=== PATIENT | female | born 1950 | race Caucasian/White ===

== ENCOUNTER 2017-04-11 10:20 | Inpatient (IN) ==
[2017-04-11] MEDS ORDERED: Ondansetron 4 MG/2 ML VIAL IVP ONE (10:59)
[2017-04-11] MEDS ORDERED: GI Cocktail 40 ML EACH PO ONE (10:59)
[2017-04-11] MEDS ORDERED: 0.9 % Sodium Chloride 1,000 ML IVC ONE (10:59)
[2017-04-11 11:00] LABS: Bilirubin,Urine Small (Negative); Blood,Urine Small (Negative); Clarity,Urine Cloudy (Clear); Color,Urine Dark Yellow (Yellow); Glucose,Urine (UA) Normal (Normal); Ketones,Urine Negative (Negative); Leukocyte Esterase,Urine Trace (Negative); Nitrite,Urine Negative (Negative); PH,Urine 6.5 pH Units (5.0-8.0); Protein,Urine 30 mg/dL (Neg-Trace); Specific Gravity,Urine 1.019 (1.010-1.025); Urobilinogen,Urine Normal (Normal)
--- NOTE | 2017-04-11 11:14 | Emergency Department Note ---
Disposition Clinical Impression: Renal mass, left Abdominal pain Qualifiers: Abdominal location: left upper quadrant Qualified Code(s): R10.12 - Left upper quadrant pain Nausea & vomiting Qualifiers: Vomiting type: unspecified Vomiting Intractability: unspecified Qualified Code( s): R11.2 - Nausea with vomiting, unspecified Disposition: Admitted As Inpatient Condition: Fair Abdominal Pain HPI - General Chief Complaint: ED Abdominal Pain Stated Complaint: ABD Pain,N/V Time Seen by Provider: 04/11/17 10:52 Source: patient Mode of arrival: ambulatory Limitations: no limitations Nursing Notes Reviewed: Yes Vital Signs Reviewed: Yes - History of Present Illness HPI Narrative: Patient presents to the ED with the chief complaint of abdominal pain. Patient reports that since September 2016. She has had a very vague insidious onset of epigastric and left sided abdominal pain. She states that around that time she went to her primary care physician and found out that she was anemic and also had hyperthyroidism. She was started on iron pills but nothing for her thyroid. She states that she has intermittently felt better but within the last week and started feeling poorly again. She also states that she has had a 50 pound unintentional weight loss since September. Decreased appetite. Constipation. Fairly consistent nausea and intermittent vomiting of nonbloody, nonbilious. No diarrhea, melena, hematochezia. Denies any chest discomfort or shortness of breath. Denies any headache, fever, changes in vision. She states she just feels really run down and tired Pain Scale: 8 - Related Data Home Medications Medication Instructions Recorded Confirmed Diclofenac Sodium (24 HR) 100 mg PO DAILY 04/11/17 04/11/17 [Voltaren XR] Iron Polysaccharide Complex [Pro 180 mg PO DAILY 04/11/17 04/11/17 Fe] Rosuvastatin [Crestor] 20 mg PO HS 04/11/17 04/11/17 Allergies Allergy/AdvReac Type Severity Reaction Status Date / Time codeine Allergy Muscle Pain Verified 04/11/17 10:43 All systems ED: reviewed and negative except as stated. Constitutional: Reports: weakness. Denies: fever Eyes: Denies: vision change Cardiovascular: Denies: chest pain Gastrointestinal: Reports: abdominal pain, nausea, vomiting, constipation Musculoskeletal: Denies: back pain Neurological: Denies: headache Endocrine: Reports: fatigue Abdominal Pain PMH - Past Medical History Medical history: Reports: hyperlipidemia, thyroid disease Female Surgical History: Reports: cholecystectomy, hysterectomy [place] history: Reports: bilateral tubal ligation Psychiatric history: Reports: depression - Social History Smoking status: Current every day smoker Alcohol use: Reports: none Drug use: Reports: none Physical Exam - General Limitations: no limitations General appearance: alert, in no apparent distress - Head Head exam: atraumatic, normocephalic, normal inspection - Eye Eye exam: Present: normal appearance, PERRL, EOMI - ENT ENT exam: mucous membranes dry - Neck Neck exam: Present: normal inspection, full ROM, trachea midline - Chest Chest inspection: Present: normal inspection, symmetric chest wall rise - Respiratory Respiratory exam: Present: normal lung sounds bilaterally - Cardiovascular Cardiovascular exam: Present: normal rhythm, tachycardia, normal heart sounds. Absent: regular rate, irregular rhythm - Abdominal Exam Abdominal exam: Present: soft, tenderness, diminished bowel sounds. Absent: guarding, rebound, Blancas's sign, tenderness at McBurney's Point Abdominal tenderness: Present: LUQ, epigastrium, diffuse, mild - Extremities Exam Extremities exam: Present: normal inspection, full ROM. Absent: tenderness, pedal edema - Back Exam Back exam: Present: normal inspection, full ROM. Absent: tenderness - Neurological Exam Neurological exam: Present: alert, oriented X3 - Psychiatric Psychiatric exam: Present: normal affect, normal mood - Skin Skin exam: Present: warm, dry, intact, pallor. Absent: normal color Course Course Narrative: Patient presenting with abdominal pain, clinically appears ill but nontoxic. Concern over malignancy. Labs and CT with IV contrast - Reevaluation(s) Reevaluation #1: Patient's abdominal CT is concerning for a large left-sided renal tumor. I spoke with urology who recommended admission in the hospital with oncology consult and they will determine when a nephrectomy with the possible. Patient agreeable with plan Vital Signs Temperature 99 F 04/11/17 10:43 Pulse Rate 108 04/11/17 10:43 Respiratory Rate 16 04/11/17 10:43 Blood Pressure 108/63 04/11/17 10:43 O2 Sat by Pulse Oximetry 98 04/11/17 10:43 Temperature 98.3 F 04/11/17 15:44 Pulse Rate 80 04/11/17 15:44 Respiratory Rate 14 04/11/17 15:44 Blood Pressure 93/54 04/11/17 15:44 O2 Sat by Pulse Oximetry 93 04/11/17 15:44 Oxygen Delivery Oxygen Delivery Room Air Abdominal Pain - Medical Records Medical records reviewed: Yes I reviewed the patient's medical records. - Lab Data Lab results reviewed: Yes I reviewed the patient's lab results. Result diagrams: 04/11/17 17:25 04/11/17 11:26 Lab Results 04/11/17 04/11/17 04/11/17 Range/Units 10:30 11:26 11:26 WBC 13.0 H (4.3-11.1) K/mcL RBC 4.11 (3.82-4.97) M/mcL Hgb 8.5 L (11.5-15.4) g/dL Hct 29.2 L (35.3-44.9) % MCV 71.0 L (83.0-100.0) fL MCH 20.7 L (28.0-33.3) pg MCHC 29.1 L (31.6-35.5) g/dL RDW 17.9 H (11.5-14.5) % Plt Count 756 H (140-400) K/mcL MPV 9.2 L (9.4-12.4) fL Immature Gran % 0.6 (0-4) % Seg Neutrophils % 78.1 % Lymphocytes % 11.2 % Monocytes % 9.2 % Eosinophils % 0.5 % Basophils % 0.4 % Neutrophils # 10.2 H (1.6-8.9) K/mcL Lymphocytes # 1.5 (0.6-4.6) K/mcL Monocytes # 1.2 (0.0-1.3) K/mcL Eosinophils # 0.1 (0.0-0.6) K/mcL Basophils # 0.1 (0.0-0.2) K/mcL Immature Plt Fraction 1.7 (1.1-6.1) % Sodium (136-145) mEq/L Potassium (3.5-4.5) mEq/L Chloride (98-109) mEq/L Carbon Dioxide (19-29) mEq/L BUN (7-20) mg/dL Creatinine (0.57-1.11) mg/dL Est GFR ( Amer) (> 60) Est GFR (Non-Af Amer) (> 60) BUN/Creatinine Ratio (6-26) Glucose (70-99) mg/dL Calculated Osmolality (280-300) Lactic Acid 1.1 (0.5-2.2) mmol/L Calcium (8.6-10.8) mg/dL Total Bilirubin (0.2-1.2) mg/dL Direct Bilirubin (0.0-0.5) mg/dL Indirect Bilirubin (0.0-1.2) mg/dL AST (5-34) Units/L ALT (0-55) Units/L Alkaline Phosphatase (38-126) Units/L Troponin I (0-0.03) ng/mL Serum Total Protein (6.0-8.3) g/dL Albumin (3.5-5.0) g/dL Globulin (2.4-3.5) g/dL Albumin/Globulin Ratio (1.1-2.2) Lipase (8-78) Units/L TSH (0.350-4.840) mcIU/mL Free T4 (0.70-1.48) ng/dl Free T3 (1.71-3.71) pg/mL Urine Color Dark Yellow (Yellow) Urine Clarity Cloudy A (Clear) Urine pH 6.5 (5.0-8.0) pH Units Ur Specific Boomer 1.019 (1.010-1.025) Urine Protein 30 H (Neg-Trace) mg/dL Urine Glucose (UA) Normal (Normal) mg/dL Urine Ketones Negative (Negative) mg/dL Urine Blood Small H (Negative) Urine Nitrite Negative (Negative) Urine Bilirubin Small H (Negative) Urine Urobilinogen Normal (Normal) mg/dL Ur Leukocyte Esterase Trace H (Negative) Urine Microscopic RBC 3-5 H (0-3) per hpf Urine Microscopic WBC 0-3 (0-3) per hpf Ur Squamous Epith Cells Many H (None-Few) per lpf Amorphous Sediment Few (Few) Urine Bacteria Few (None-Few) per hpf Ur Culture Indicated? YES A (NO) 04/11/17 04/11/17 Range/Units 11:26 11:26 WBC (4.3-11.1) K/mcL RBC (3.82-4.97) M/mcL Hgb (11.5-15.4) g/dL Hct (35.3-44.9) % MCV (83.0-100.0) fL MCH (28.0-33.3) pg MCHC (31.6-35.5) g/dL RDW (11.5-14.5) % Plt Count (140-400) K/mcL MPV (9.4-12.4) fL Immature Gran % (0-4) % Seg Neutrophils % % Lymphocytes % % Monocytes % % Eosinophils % % Basophils % % Neutrophils # (1.6-8.9) K/mcL Lymphocytes # (0.6-4.6) K/mcL Monocytes # (0.0-1.3) K/mcL Eosinophils # (0.0-0.6) K/mcL Basophils # (0.0-0.2) K/mcL Immature Plt Fraction (1.1-6.1) % Sodium 137 (136-145) mEq/L Potassium 4.3 (3.5-4.5) mEq/L Chloride 102 (98-109) mEq/L Carbon Dioxide 24 (19-29) mEq/L BUN 14 (7-20) mg/dL Creatinine 0.79 (0.57-1.11) mg/dL Est GFR ( Amer) > 60 (> 60) Est GFR (Non-Af Amer) > 60 (> 60) BUN/Creatinine Ratio 18 (6-26) Glucose 119 H (70-99) mg/dL Calculated Osmolality 286 (280-300) Lactic Acid (0.5-2.2) mmol/L Calcium 10.6 (8.6-10.8) mg/dL Total Bilirubin 0.4 (0.2-1.2) mg/dL Direct Bilirubin 0.3 (0.0-0.5) mg/dL Indirect Bilirubin 0.1 (0.0-1.2) mg/dL AST 23 (5-34) Units/L ALT 9 (0-55) Units/L Alkaline Phosphatase 325 H (38-126) Units/L Troponin I 0.00 (0-0.03) ng/mL Serum Total Protein 8.2 (6.0-8.3) g/dL Albumin 1.9 L (3.5-5.0) g/dL Globulin 6.3 H (2.4-3.5) g/dL Albumin/Globulin Ratio 0.3 L (1.1-2.2) Lipase 18 (8-78) Units/L TSH 0.811 (0.350-4.840) mcIU/mL Free T4 1.17 (0.70-1.48) ng/dl Free T3 1.73 (1.71-3.71) pg/mL Urine Color (Yellow) Urine Clarity (Clear) Urine pH (5.0-8.0) pH Units Ur Specific Boomer (1.010-1.025) Urine Protein (Neg-Trace) mg/dL Urine Glucose (UA) (Normal) mg/dL Urine Ketones (Negative) mg/dL Urine Blood (Negative) Urine Nitrite (Negative) Urine Bilirubin (Negative) Urine Urobilinogen (Normal) mg/dL Ur Leukocyte Esterase (Negative) Urine Microscopic RBC (0-3) per hpf Urine Microscopic WBC (0-3) per hpf Ur Squamous Epith Cells (None-Few) per lpf Amorphous Sediment (Few) Urine Bacteria (None-Few) per hpf Ur Culture Indicated? (NO) - Radiology Data Radiology results reviewed: Yes I reviewed the patient's radiology results. - EKG Data EKG attestation: Yes I reviewed and interpreted this EKG. EKG results narrative: Sinus rhythm, rate 94, [place] interval 154, QRS 1:15, QTC 378, left axis deviation, left anterior fascicular block and no previous available, no acute ischemic changes
--- NOTE | 2017-04-11 11:19 | Emergency Department Note ---
START Narrative - START START: I examined this patient and my medical decision-making was reviewed with the RAIL WALKER/PA/Advanced Practice Nurse/Resident Physician. I agree with the documented findings, disposition and treatment plan as described except to the extent set forth below. ED attending note: Patient seen with emergency medicine resident Dr. FLORES. We independently evaluated the patient. We independently had [id number] contact with the patient. Please see a copy of his note for details of the history and physical, evaluation, management and disposition of this emergency Department patient. Briefly: 67-year-old female unexplained 50 pound weight loss over the past several months without any personal or family history of neoplasms. Patient appears ill but nontoxic will get rehydrated with screening labs will search for the cause of weight loss most conspicuously an occult neoplasm. Skin abdominopelvic CT and labs. Disposition pending.
[2017-04-11 11:23] LABS: Bacteria,Urine Few per hpf (None-Few); Squamous Epithelial Cell,Urine Many per lpf (None-Few); WBC,Urine 0-3 per hpf (0-3)
[2017-04-11 11:24] LABS: Amorphous Sediment,Urine Few (Few)
[2017-04-11 11:35] LABS: Basophils # 0.1 K/mcL (0.0-0.2); Basophils % 0.4 %; Eosinophils # 0.1 K/mcL (0.0-0.6); Eosinophils % 0.5 %; Hematocrit 29.2 % (35.3-44.9); Hemoglobin 8.5 g/dL (11.5-15.4); Immature Granulocytes % 0.6 % (0-4); Immature Platelets 1.7 % (1.1-6.1); Lymphocytes # 1.5 K/mcL (0.6-4.6); Lymphocytes % 11.2 %; Mean Corpuscular HGB Conc 29.1 g/dL (31.6-35.5); Mean Corpuscular Hemoglobin 20.7 pg (28.0-33.3); Mean Platelet Volume 9.2 fL (9.4-12.4); Monocytes # 1.2 K/mcL (0.0-1.3); Monocytes % 9.2 %; Neutrophils # 10.2 K/mcL (1.6-8.9); Platelet Count 756 K/mcL (140-400); Red Blood Count 4.11 M/mcL (3.82-4.97); Red Cell Distribution Width 17.9 % (11.5-14.5); Segmented Neutrophils % 78.1 %
[2017-04-11 11:49] LABS: Alanine Aminotransferase 9 Units/L (0-55); Albumin/Globulin Ratio 0.3 (1.1-2.2); Alkaline Phosphatase 325 Units/L (38-126); Aspartate Amino Transferase 23 Units/L (5-34); BUN/Creatinine Ratio 18 (6-26); Bilirubin,Direct 0.3 mg/dL (0.0-0.5); Bilirubin,Indirect 0.1 mg/dL (0.0-1.2); Bilirubin,Total 0.4 mg/dL (0.2-1.2); Blood Urea Nitrogen 14 mg/dL (7-20); Calcium 10.6 mg/dL (8.6-10.8); Carbon Dioxide 24 mEq/L (19-29); Chloride 102 mEq/L (98-109); Globulin 6.3 g/dL (2.4-3.5); Glucose 119 mg/dL (70-99); Lipase 18 Units/L (8-78); Osmolality,Calculated 286 (280-300); Potassium 4.3 mEq/L (3.5-4.5); Sodium 137 mEq/L (136-145); Total Protein 8.2 g/dL (6.0-8.3); eGFR For African Americans > 60 (> 60); eGFR For Non-African Americans > 60 (> 60)
[2017-04-11 11:50] LABS: Albumin 1.9 g/dL (3.5-5.0)
[2017-04-11 12:10] LABS: Thyroid Stimulating Hormone 0.811 mcIU/mL (0.350-4.840); Triiodothyronine (T3) Free 1.73 pg/mL (1.71-3.71)
[2017-04-11] MEDS ORDERED: Naloxone 0.4 MG/ML INJ IVP PRN (15:53)
[2017-04-11] MEDS ORDERED: Ondansetron 4 MG/2 ML VIAL IVP PRN (15:53)
[2017-04-11] MEDS ORDERED: *HR* Morphine 2 MG/ML SYRINGE IVP PRN (16:46)
--- NOTE | 2017-04-11 17:12 | Internal Med History&Physical ---
Date of Encounter: 04/11/17 Time of Encounter: 17:07 Assessment and Plan (1) Renal cell cancer Current visit: Yes Status: Suspected Suspected diagnosis of renal cell cancer. Patient presents with an insidious onset of epigastric, and left abdominal pain radiation to the left mid back accompanied by a 54 pounds unintentional weight loss and nausea and vomiting since September 2016. CT abdomen and pelvis revealed a necrotic mass arising from upper pole of left kidney measuring approximately 13.2 x 10 x 12.8 cm, mass extends into renal hilum with no evidence of vascular thrombosis, there may be clinic invasion as well as lymph node involvement. Neurology has been consulted and has already seen patient Oncology has been consulted and plan to see patient today will adjust treatment plan based off urology and oncology consults Continuous telemetry Rehydration with 0.9% normal saline at 125 mL per hour Every 4 hours H and H 2 then every 6 hours H&H 3 Type and screen Strict I's and O's Morphine 2 mg IV push every 4 hours for pain Metabolic panel in the morning Consider CT of chest based upon recommendations of oncology Qualifiers: Laterality: left Qualified Code(s): C64.2 - Malignant neoplasm of left kidney, except renal pelvis (2) Nausea & vomiting Current visit: Yes Status: Acute Nausea and vomiting ongoing since early 2016. Associated with epigastric and left abdominal pain, CT reveals new diagnosis of renal cancer. Management nausea and vomiting with Zofran, consider adding Phenergan and remains uncontrolled on Zofran Qualifiers: Vomiting type: unspecified Vomiting Intractability: unspecified Qualified Code(s): R11.2 - Nausea with vomiting, unspecified (3) Abdominal pain Current visit: Yes Status: Acute Epigastric and left upper quadrant abdominal pain with radiation to left mid back. This pain is accompanied with 54 pound weight loss in September 2016. Diagnosis of renal cell cancer CT. Morphine 2 mg IV push every 4 hours when necessary for pain Qualifiers: Abdominal location: left upper quadrant Qualified Code(s): R10.12 - Left upper quadrant pain (4) Weight loss of more than 10% body weight Current visit: Yes Status: Acute The patient has had a greater than 10% unintentional weight loss beginning September 2016. Associated with insidious onset of epigastric, left abdominal pain, nausea vomiting. CT abdomen and pelvis reveals new necrotic mass on left kidney likely renal cell cancer. Renal cell cancer is likely the cause of unintentional weight loss. 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 Patient with new diagnosis of renal cell cancer which is likely resulting in anemia. Continue home dose of iron supplementation Every 4 H&H 2 then every 63 Type and screen in case of the need for transfusion Obtain permission to transfuse Qualifiers: Anemia type: iron deficiency Iron deficiency anemia type: chronic blood loss Qualified Code(s): D50.0 - Iron deficiency anemia secondary to blood loss (chronic) (6) Constipation Current visit: Yes Status: Acute Patient reports constipation ongoing over the last couple of days. She was recently started on supplemental iron by primary care provider due to anemia and this is likely contributory. Docusate 100 mg twice a day Qualifiers: Qualified Code(s): K59.00 - Constipation, unspecified (7) DVT prophylaxis Current visit: Yes Status: Acute Likely diagnosis of renal cell cancer. Patient is a high-risk for DVT. Start Lovenox 40 mg subcutaneous daily Internal Medicine - H&P: HPI Chief complaint: epigastric pain, pain in lt abd with radiation to left back, N/ V Admitted From: Home Plans for Post Hospital Care: Home History of present illness: Ms. Pruitt is a 67 year old female with a past medical history of HLD, hyperthyroidism, depression, partial hysterectomy and cholecystectomy and is a current everyday smoker. Presents [facility] today with an insidious onset of epigastric and left abdominal pain with radiation to the left midback. Additionally, reports 54 pound weight loss since September with intermittent nausea and vomiting, fatigue, dizziness, intermittent fevers, anorexia, early satiety. She admits to seeing multiple primary care providers with these concerns however, they have left her practice shortly after she established. Most recent PCP for workup which showed hyperthyroidism, 2 thyroid nodules biopsied and negative for cancer. Workup reveals anemia H&H as follows 8.5/29.2, increase WBCs 13, unremarkable metabolic panel, dark urine with trace leuks, CT abdomen and pelvis reveals new necrotic mass arising from upper left pole of kidney with approximate size of 13 cm x 10 cm x 13 cm, mass extends into renal hilum with no evidence of vascular thrombosis. It appears the patient may have renal cell cancer. Being admitted for further monitoring, workup and consultation. Past Med Surg Social Fam HX - Past Medical History Medical history: hyperlipidemia, thyroid disease Psychiatric history: depression - Social History Smoking Status: Current every day smoker Packs per day: 1 Smokeless Tobacco Status: No Alcohol use: none Drug use: none - Family History Mother Living Status: Still Living Hx Family Cardiac Disorders: Yes Father Living Status: Hx Family Endocrine Disorder: Yes (type 2 DM) Internal Medicine - H&P: Meds Diclofenac Sodium (24 HR) [Voltaren XR] 100 mg PO DAILY 04/11/17 [History] Iron Polysaccharide Complex [Pro Fe] 180 mg PO DAILY 04/11/17 [History] Rosuvastatin [Crestor] 20 mg PO HS 04/11/17 [History] 3 Allergy/AdvReac Type Severity Reaction Status Date / Time codeine Allergy Muscle Pain Verified 04/11/17 10:43 All Systems PM: A 10-system review of systems was performed and is negative for pertinent findings except as documented above in the HPI. - Constitutional Constitutional: as per HPI, anorexia, fatigue, fever(s), lethargy, weakness, weight loss, no chills, no night sweats - EENT Eyes: no change in vision, no discharge, no pain, no photophobia Ears: no ear discharge, no ear pain, no tinnitus Nose, mouth and throat: no dysphagia, no nasal discharge, no neck pain, no sore throat - Cardiovascular Cardiovascular ROS IM: no chest pain, no diaphoresis, no dyspnea, no edema, no lightheadedness, no palpitations, no syncope - Respiratory Respiratory: no cough, no dyspnea, no wheezing, no excessive phlegm production - Gastrointestinal Gastrointestinal: as per HPI, constipation, early satiety, nausea, vomiting ( Nausea and vomiting ongoing since September), no abdominal pain, no belching, no bloating, no diarrhea, no hematemesis, no hematochezia, no loose stools, no melena - Genitourinary Genitourinary: urinary urgency, no change in urinary stream, no dysuria, no flank pain, no hematuria Additional comments: Admits to change in urine color, notes that urine is getting progressively darker, denies any lilly blood - Musculoskeletal Musculoskeletal ROS IM: back pain (Mid left back), no numbness, no tingling - Integumentary Integumentary IM: no rash, no unusual bruising - Neurological Neurological ROS: no confusion, no convulsions, no focal weakness, no numbness, no tingling, no tremor(s) - Hematologic/Lymphatic Hematologic/Lymphatic: no easy bruising - Constitutional Vitals: Temp Pulse Resp BP Pulse Ox 98.3 F 80 14 93/54 93 04/11/17 15:44 04/11/17 15:44 04/11/17 15:44 04/11/17 15:44 04/11/17 15:44 General appearance: Present: cooperative, A&O X 3, no acute distress, answers questions appropriately - Head Head exam: Present: atraumatic, normocephalic - Eye Eye exam: Present: PERRL Pupils: Present: PERRL - Neck Neck exam general surgery: Absent: lymphadenopathy - Respiratory Respiratory exam: Present: CTAB. Absent: accessory muscle use, rales, rhonchi, wheezes - Cardiovascular Cardiovascular exam: Present: RRR, +S1, +S2. Absent: diastolic murmur, gallop, rubs, systolic murmur - GI/Abdominal GI/Abdominal exam: Present: hypoactive bowel sounds, soft, tenderness (Left lower quadrant and suprapubic tenderness noted to palpation), no peritoneal signs. Absent: distended, firm, guarding, mass - Extremities Exam Extremities exam: Present: warm, radial pulses palpable and symmetrical. Absent : calf tenderness, cyanotic, pedal edema - Neurological Exam Neurological exam: Present: CN II-XII intact, oriented X3, no focal deficits. Absent: pronater drift, facial droop, speech deficit - Skin Skin exam: Present: dry, intact Internal Med - H&P Results - Labs CBC & Chem 7: 04/11/17 11:26 04/11/17 11:26 - Diagnostic Studies CT scan - abdomen Additional comments: CT abdomen and pelvis with contrast reveals new necrotic mass arising from the upper pole of left kidney approximately 13.2 x 10 x 12.8 cm, mass extends into renal hilum without evidence of vascular thrombosis. Additionally mass abuts the spleen and there appears to be some surrounding lymph node involvement Chest x-ray Additional comments: Negative for acute pulmonary process
--- NOTE | 2017-04-11 17:47 | Urology - Consult Note ---
Date of Encounter: 04/11/17 Time of Encounter: 17:45 - Assessment and Plan (1) Renal mass, left Current Visit: Yes Status: Acute Assessment and plan: I had a 30+ minutes conversation with the patient regarding the CT findings. The large renal mass is likely advanced renal cell carcinoma. There is concern for metastatic disease as there are small lymph nodes in her retroperitoneum. Questionable invasion into the spleen. Chest x-ray was negative. I discussed with the patient that I'm concerned that her prognosis is poor based on the CT scan images. We will need full workup to best determine her overall prognosis. I recommend a CT chest as she has had a chronic cough for 3 months which is concerning for a metastatic pulmonary lesions. The chest x-ray is not sensitive enough to fully determine if this is present. Medical Oncology consultation is recommended. Strongly consider renal biopsy, bone scan to evaluate for bone metastases, if surgical intervention is considered an MRI is important to better evaluate if she has renal vein or IVC involvement. Oncology will help determine if neoadjuvant chemotherapy before surgery or a cytoreductive nephrectomy first is most appropriate. If she requires a cytoreductive nephrectomy this is probably best handled at a tertiary care center such as [facility]. The potential spleen involvement could greatly complicate the surgery. There are also many parasitic vessels surrounding the renal mass which increases the likelihood of hemorrhage. We'll continue to follow patient while she is at the hospital Urology CN:HPI Consult date: 04/11/17 Reason for consult Urology: Other History of present illness: 67-year-old female with a six-month history of progressive weight loss of over 50 pounds. She has also had increasing abdominal pain, fatigue, dizziness, nausea and vomiting. CT scan in the emergency room revealed a 13 cm left renal mass with necrotic features. Admitted for further evaluation Past Med Surg Social Fam HX - Past Medical History Medical history: hyperlipidemia, thyroid disease Psychiatric history: depression - Social History Smoking Status: Current every day smoker Packs per day: 1 Smokeless Tobacco Status: No Alcohol use: none Drug use: none - Family History Mother Living Status: Still Living Hx Family Cardiac Disorders: Yes Father Living Status: Hx Family Endocrine Disorder: Yes (type 2 DM) Medications and Allergies Diclofenac Sodium (24 HR) [Voltaren XR] 100 mg PO DAILY 04/11/17 [History] Iron Polysaccharide Complex [Pro Fe] 180 mg PO DAILY 04/11/17 [History] Rosuvastatin [Crestor] 20 mg PO HS 04/11/17 [History] 3 Allergy/AdvReac Type Severity Reaction Status Date / Time codeine Allergy Muscle Pain Verified 04/11/17 10:43 Review of Systems - Constitutional fatigue, weakness, no chills, no fever(s) - EENT Nose, mouth and throat: dizziness, no headache(s) - Cardiovascular no chest pain - Respiratory cough - Gastrointestinal abdominal pain, nausea, vomiting - Genitourinary Genitourinary: flank pain, no hematuria - Musculoskeletal back pain - Integumentary no erythema - Neurological no confusion - Psychiatric no anxiety - Hematologic/Lymphatic no easy bleeding - Allergic/Immunologic no throat swelling Exam Initial Vital Signs Temp Pulse Resp BP Pulse Ox 99 F 108 16 108/63 98 04/11/17 10:43 04/11/17 10:43 04/11/17 10:43 04/11/17 10:43 04/11/17 10:43 - General physical appearance Present: no distress, chronically ill - Eyes Present: PERRL - ENT Present: decreased hearing - Neck Present: no masses - Respiratory Present: normal respiratory effort - Cardiovascular Cardiovascular exam IM: RRR - Abdomen Abdomen: Present: soft - Integumentary Present: no rash - Neurologic Absent: disoriented, confused Urology Results - Labs 04/11/17 11:26 04/11/17 11:26 Abnormal lab results WBC 13.0 K/mcL (4.3-11.1) H 04/11/17 11:26 Hgb 8.5 g/dL (11.5-15.4) L 04/11/17 11:26 Hct 29.2 % (35.3-44.9) L 04/11/17 11:26 MCV 71.0 fL (83.0-100.0) L 04/11/17 11:26 MCH 20.7 pg (28.0-33.3) L 04/11/17 11: MCHC 29.1 g/dL (31.6-35.5) L 04/11/17 11:26 RDW 17.9 % (11.5-14.5) H 04/11/17 11:26 Plt Count 756 K/mcL (140-400) H 04/11/17 11:26 MPV 9.2 fL (9.4-12.4) L 04/11/17 11:26 Neutrophils # 10.2 K/mcL (1.6-8.9) H 04/11/17 11:26 Glucose 119 mg/dL (70-99) H 04/11/17 11:26 Alkaline Phosphatase 325 Units/L (38-126) H 04/11/17 11:26 Albumin 1.9 g/dL (3.5-5.0) L 04/11/17 11: Globulin 6.3 g/dL (2.4-3.5) H 04/11/17 11:26 Albumin/Globulin Ratio 0.3 (1.1-2.2) L 04/11/17 11:26 Urine Clarity Cloudy (Clear) A 04/11/17 10:30 Urine Protein 30 mg/dL (Neg-Trace) H 04/11/17 10:30 Urine Blood Small (Negative) H 04/11/17 10:30 Urine Bilirubin Small (Negative) H 04/11/17 10:30 Ur Leukocyte Esterase Trace (Negative) H 04/11/17 10:30 Urine Microscopic RBC 3-5 per hpf (0-3) H 04/11/17 10:30 Ur Squamous Epith Cells Many per lpf (None-Few) H 04/11/17 10:30 Ur Culture Indicated? YES (NO) A 04/11/17 10:30 All other labs normal. Consult Discharge Plan - Plan Referrals: Fabiola Velez, CHASITY [Primary Care Provider] -
[2017-04-11 17:50] LABS: Hematocrit 24.9 % (35.3-44.9); Hemoglobin 7.4 g/dL (11.5-15.4)
[2017-04-11] MEDS: 0.9 % Sodium Chloride 1,000 ML IVC SCH (19:32)
--- NOTE | 2017-04-11 20:57 | Oncology Inp Consult Note ---
Date of Encounter: 04/11/17 Time of Encounter: 17:45 Assessment and Plan (1) Renal mass, left Status: Acute Assessment and plan: I personally reviewed the CT abdomen findings that revealed a 13x12 raquel in the left kidney, highly suspicious for renal cell carcinoma. Her scans revealed too subcentimeter retroperitoneal lymph nodes. The left kidney mass abuts the spleen , but there is not conclusive evidence of invasion. I discussed with Ms. Pruitt and her the CT scan findings and the need for further work up for staging purposes, this will include CT chest, Bone scan ( in view of the presence of elevated alkaline phosphatase). - If staging work up revealed not evidence of metastatic disease, our recommendation would be for surgical resection, with not recommendations for neoadjuvant therapy ( other than in the settings of a clinical trial). - Surgery would remain as a consideration( cytoreductive surgery) even if her scans show findings suggestive of metastatic disease in view that there is evidence that may prolong survival in this settings. Urology team on board. - She will need to follow up with medical oncology as outpatient ( regardless whether her final stage is consistent with advance or localized disease) to discuss further management/monitoring. (2) Elevated alkaline phosphatase level Status: Acute Assessment and plan: - In the presence of normal bilibirrubin values, and not visualized lesions in CT abdomen, findings are concerning for bone involvement ( although she denies any bone pain). Check bone during current admission. (3) Hypercalcemia Status: Acute Assessment and plan: - Corrected calcium levels ( adjusted to hypoalbuminemia) are approximatley 12.3 mg/dl. Hypercalcemia in the settings of RCC can be multifactorial, including bone lesions or paraneopasic, releated to PTH related protein . - Check bone scan, PTH, PTH related protein ( PTHrP), free calcium. - Consider management with IVF NS for now. (4) Anemia Status: Acute Assessment and plan: Probably a combination of anemia of inflammation ( in view of elevated ferritin ), and iron deficiency in view of microcytic component, low iron levels and associated malnutrition. - Consider to transfuse for Hb or HCT less than 7 g/dl or 21 respectively - She may benefit from parenteral iron ( Feraheme 510 mg IV x 1. I would avoid PO iron at this time in view of ongoing constipation. Qualifiers: Anemia type: iron deficiency Iron deficiency anemia type: chronic blood loss Qualified Code(s): D50.0 - Iron deficiency anemia secondary to blood loss (chronic) - Data of Consult Requesting Physician: Joanna Dillard Primary Care Provider: Fabiola Velez, - Consult Narrative Reason for consult: management of renal mass, possible RCC History of present illness: Ms. Pruitt is a 67 year old female presenting to the ED with a history of weight loss, epigastric complaints. Imaging at ED revealed a 13 x 10 x 12 cm left renal mass, suspicious for renal cell carcinoma. Patient was aware of the CT findings prior to the hospital visit. She was accompanied by her . History was taken from the patient and . She presented to the ED with several complaints, including nausea, abdominal pain. She reports that her symptoms started approximately in September 2016. Her reports that she has been gradually losing weight, with poor po intake; today he decided to check her blood pressure after she complained of light headedness, and noticed that her blood pressure was low ( 90/50 mmHg) what prompted him to bring her to the hospital. She reports not recent falls or focal weakness. There is not family history of renal ca or other malignancies. Other than then epigastric pain, she denies other pain. She reports that eating exacerbated her abdominal complains.She denies bone pain, headache. Her reports that last year she underwent a biopsy of her thyroid gland after being found with a couple of thyroid nodules, but as per his report that results showed not evidence of malignancy. There is not record available of those studies/pathology results. She reports not episodes of macroscopic bleeding. She reports being constipated for the last few days. She denies any recent episode of CP, SOB, headache, falls, diarrhea, melena, hematochezia, hematuria. He reports that she is an active smoker, just smoking prior to this admission. Denies history of alcohol abuse. Regarding her social history, she lives with her . They have 6 sons, almost all of them live close by. They have 19 grandchildren. No history of significant malignancies in first degree or second degree family members. Past Med Surg Social Fam HX - Past Medical History Medical history: hyperlipidemia, thyroid disease Psychiatric history: depression - Social History Smoking Status: Current every day smoker Packs per day: 1 Smokeless Tobacco Status: No Alcohol use: none Drug use: none - Family History Mother Living Status: Still Living Hx Family Cardiac Disorders: Yes Father Living Status: Hx Family Endocrine Disorder: Yes (type 2 DM) Medications and Allergies Diclofenac Sodium (24 HR) [Voltaren XR] 100 mg PO DAILY 04/11/17 [History] Iron Polysaccharide Complex [Pro Fe] 180 mg PO DAILY 04/11/17 [History] Rosuvastatin [Crestor] 20 mg PO HS 04/11/17 [History] 3 Allergy/AdvReac Type Severity Reaction Status Date / Time codeine Allergy Muscle Pain Verified 04/11/17 10:43 Constitutional: Present: anorexia, fatigue, malaise, weight loss. Absent: fever (s), frequent falls, headache(s), increased appetite, night sweats, weight gain Eyes: Absent: diplopia Nose, mouth and throat: Present: dizziness Cardiovascular: Absent: chest pain with activity, diaphoresis, dyspnea, edema, irregular heart rhythm, leg edema Respiratory: Absent: cough Gastrointestinal: Present: abdominal pain, change in bowel habits. Absent: coffee ground emesis, diarrhea, dysphagia, hematemesis, hematochezia Musculoskeletal: Absent: abnormal gait, joint swelling, myalgias, neck pain Integumentary: Absent: bleeding lesions, new lesions, photosensitivity Neurological: Present: dizziness. Absent: abnormal hearing, focal weakness, frequent falls, lack of coordination, loss of vision Psychiatric: Present: change in appetite. Absent: auditory hallucinations, behavioral changes, confusion, visual hallucinations Endocrine: Absent: polyphagia Hematologic/Lymphatic: Present: as per HPI. Absent: easy bleeding Oncology - Exam - Constitutional Vitals: Temp Pulse Resp BP Pulse Ox 98.3 F 80 14 93/54 93 04/11/17 15:44 04/11/17 15:44 04/11/17 15:44 04/11/17 15:44 04/11/17 15:44 - Head Head exam: Present: normal inspection - Eye Eye exam: Present: EOMI, normal appearance - ENT ENT exam: Present: normal exam, normal oropharynx - Neck Neck exam: Absent: lymphadenopathy, tenderness - Respiratory Respiratory exam: Present: CTAB. Absent: chest wall tenderness, wheezes - Cardiovascular Cardiovascular exam: Present: RRR. Absent: gallop, irregular rhythm - GI/Abdominal GI/Abdominal exam: Present: normal bowel sounds, soft (Reports mild discomfort with palpation in epigastric area. No rebound tenderness. BS present. No flank tenderness. ). Absent: hyperactive bowel sounds - Extremities Exam Extremities exam: Present: normal inspection. Absent: pedal edema, tenderness - Back Exam Back exam: Present: normal inspection. Absent: paraspinal tenderness, tenderness, vertebral tenderness Oncology - Results Labs: Short CBC 04/11/17 Range/Units 17:25 Hgb 7.4 L (11.5-15.4) g/dL Hct 24.9 L (35.3-44.9) % Consult Discharge Plan - Plan Referrals: Fabiola Velez, [employer] [Primary Care Provider] -
[2017-04-11 21:52] LABS: Hematocrit 25.8 % (35.3-44.9); Hemoglobin 7.4 g/dL (11.5-15.4)
[2017-04-12 05:13] LABS: Basophils % 0.4 %; Eosinophils # 0.1 K/mcL (0.0-0.6); Eosinophils % 0.8 %; Hematocrit 23.8 % (35.3-44.9); Immature Granulocytes % 0.5 % (0-4); Lymphocytes # 2.3 K/mcL (0.6-4.6); Mean Corpuscular HGB Conc 29.4 g/dL (31.6-35.5); Mean Corpuscular Volume 71.3 fL (83.0-100.0); Mean Platelet Volume 9.4 fL (9.4-12.4); Monocytes # 1.3 K/mcL (0.0-1.3); Monocytes % 12.8 %; Neutrophils # 6.2 K/mcL (1.6-8.9); Platelet Count 534 K/mcL (140-400); Red Blood Count 3.34 M/mcL (3.82-4.97); Red Cell Distribution Width 17.7 % (11.5-14.5); Segmented Neutrophils % 62.5 %
[2017-04-12 05:23] LABS: Alanine Aminotransferase 8 Units/L (0-55); Albumin/Globulin Ratio 0.3 (1.1-2.2); Alkaline Phosphatase 283 Units/L (38-126); Aspartate Amino Transferase 21 Units/L (5-34); BUN/Creatinine Ratio 15 (6-26); Bilirubin,Total 0.4 mg/dL (0.2-1.2); Blood Urea Nitrogen 10 mg/dL (7-20); Calcium 9.5 mg/dL (8.6-10.8); Carbon Dioxide 24 mEq/L (19-29); Chloride 107 mEq/L (98-109); Globulin 5.4 g/dL (2.4-3.5); Glucose 110 mg/dL (70-99); Osmolality,Calculated 288 (280-300); Sodium 139 mEq/L (136-145); Total Protein 7.1 g/dL (6.0-8.3); eGFR For African Americans > 60 (> 60); eGFR For Non-African Americans > 60 (> 60)
[2017-04-12] MEDS: 0.9 % Sodium Chloride 1,000 ML IVC SCH (05:24)
[2017-04-12 05:28] LABS: Albumin 1.7 g/dL (3.5-5.0)
[2017-04-12] MEDS ORDERED: *HR* Heparin 5,000 UNIT/ML VIAL SQ SCH (06:00)
--- NOTE | 2017-04-12 07:31 | Electrocardiograph Report ---
[facility] Test Date: 2017-04-11 Pat Name: Teresa Pruitt Department: [facility] Room: 3B55 Gender: F Excavating Supervisor: : 1950 Requested By: Lico Sultana Order Number: [id number] Reading MD: Nallely Mora DO Measurements Intervals [place] Rate: 94 P: 52 MN: 154 QRS: -46 QRSD: 115 T: 74 QT: 327 QTc: 378 Interpretive Statements SINUS RHYTHM LEFT ANTERIOR FASCICULAR BLOCK [QRS AXIS <= -45, QR IN I, RS IN II] NONSPECIFIC T-WAVE ABNORMALITY Left axis deviation POOR R WAVE PROGRESSION Electronically Signed On 04-12-2017 7:29:55 EDT by Nallely Mora DO
[2017-04-12] MEDS ORDERED: (Iron Polysaccharide Complex [Pro Fe] 180 MG) PO SCH (09:00)
[2017-04-12] MEDS ORDERED: Diclofenac Sodium (24 HR) 100 MG TABLET PO SCH (09:00)
[2017-04-12 09:21] LABS: Hematocrit 23.8 % (35.3-44.9); Hemoglobin 6.9 g/dL (11.5-15.4)
[2017-04-12] MEDS ORDERED: 0.9 % Sodium Chloride 250 ML ONE (11:42)
--- NOTE | 2017-04-12 13:22 | Discharge Summary ---
Date of Encounter: 04/12/17 Time of Encounter: 10:00 - Discharge Diagnosis (1) Renal cell cancer Priority: Primary Status: Suspected Qualifiers: Laterality: left Qualified Code(s): C64.2 - Malignant neoplasm of left kidney, except renal pelvis (2) Abdominal pain Priority: Primary Status: Acute Qualifiers: Abdominal location: left upper quadrant Qualified Code(s): R10.12 - Left upper quadrant pain (3) Weight loss of more than 10% body weight Priority: Primary Status: Acute (4) DVT prophylaxis Priority: Secondary Status: Acute (5) Anemia Priority: Primary Status: Acute Qualifiers: Anemia type: iron deficiency Iron deficiency anemia type: chronic blood loss Qualified Code(s): D50.0 - Iron deficiency anemia secondary to blood loss (chronic) (6) Hypercalcemia Priority: Primary Status: Acute (7) Elevated alkaline phosphatase level Priority: Primary Status: Acute - Discharge Medications Home Medications: Diclofenac Sodium (24 HR) [Voltaren XR] 100 mg PO DAILY 04/11/17 [History] Iron Polysaccharide Complex [Pro Fe] 180 mg PO DAILY 04/11/17 [History] Rosuvastatin [Crestor] 20 mg PO HS 04/11/17 [History] Docusate [Colace] 100 mg PO BID PRN 04/12/17 [Rx] Heparin 5,000 unit SQ Q12HCO vial 04/12/17 [Rx] Naloxone [Narcan] 0.4 mg IVP Q2MIN PRN 04/12/17 [Rx] Ondansetron [Zofran] 4 mg IVP Q8HR PRN vial 04/12/17 [Rx] Allergies/Adverse Reactions: 3 Allergy/AdvReac Type Severity Reaction Status Date / Time codeine Allergy Muscle Pain Verified 04/11/17 10:43 Procedures/tests Complete & Pending: Procedures Performed prior 72 hours Category Date Time Status CT chest w/o contrast [CT chest wo con] [CT] Stat Cat Scan 04/11/17 17:50 Completed Date of admission: 04/11/17 15:53 Primary care physician: Fabiola Velez, Consults: 04/11/17 16:[address] Sql Developer [CONS] Routine Reason for SW Consult: likely dx of renal cell carcinoma; c/s for resources and adv dir 04/11/17 16:50 Consult to Physician [CONS] Routine Consulting Provider: Edil Britton I Reason for Consult: new cancer diagnosis; likely renal cell carcinoma Time Notified: 16:52 Call Completed: Yes Discharging clinician: Leoncio العلي Anticipated date of discharge: 04/12/17 - Patient Status Disposition: Transfer Critical Access Hosp Condition: Fair Functional capacity at discharge: independent ambulation Overall status at discharge: patient is not back to baseline - Discharge Instructions Follow Up With: Fabiola Velez, SELF DEFENSE INSTRUCTOR [Primary Care Provider] - - Diet and Activity Activity: other Diet: regular diet Interval History: HPI: Ms. Pruitt is a 67 year old female with a past medical history of HLD, hyperthyroidism, depression, partial hysterectomy and cholecystectomy and is a current everyday smoker. Presents [facility] today with an insidious onset of epigastric and left abdominal pain with radiation to the left midback. Additionally, reports 54 pound weight loss since September with intermittent nausea and vomiting, fatigue, dizziness, intermittent fevers, anorexia, early satiety. She admits to seeing multiple primary care providers with these concerns however, they have left her practice shortly after she established. Most recent PCP for workup which showed hyperthyroidism, 2 thyroid nodules biopsied and negative for cancer. Workup reveals anemia H&H as follows 8.5/29.2, increase WBCs 13, unremarkable metabolic panel, dark urine with trace leuks, CT abdomen and pelvis reveals new necrotic mass arising from upper left pole of kidney with approximate size of 13 cm x 10 cm x 13 cm, mass extends into renal hilum with no evidence of vascular thrombosis. It appears the patient may have renal cell cancer. Being admitted for further monitoring, workup and consultation. Hospital course: Ms. Pruitt is a 67 year old female admit for left kidney mass found in ER. She was consulted by oncology and urology in our hospital. Highly suspect renal cell carcinoma (not having biopsy yet). Per oncologist, pt may need surgery either with or without metastasis. Urology reviewed her CT and recommend to transfer pt to higher level hospital for surgical consideration since mass is large and surgery is complicated. D/W pt the treatment option, she agrees to transfer to [facility] for further management. [facility] was called and pt was accepted. I saw and examined pt today. She is still weak but generally fine. No nausea or vomitting. Hgb 6.9 today. Will transfuse 1 unit of PRBC. Vitals is stable. Pt is stable for transfer to [facility]. Time spent discussing smoking cessation with patient: 3 to 10 minutes - Time Spent with Patient Total time spent providing and/or coordinating discharge services: 40 min Greater than 30 minutes - Constitutional Vitals: Temp Pulse Resp BP Pulse Ox 99.5 F 94 16 107/54 97 04/12/17 12:13 04/12/17 12:13 04/12/17 12:13 04/12/17 12:13 04/12/17 12:13 General appearance: Present: cooperative, A&O X 3, no acute distress, answers questions appropriately - Head Head exam: Present: atraumatic, normocephalic - Eye Eye exam: Present: PERRL, conjuntiva pink, sclera anicteric Pupils: Present: PERRL - Neck Neck exam general surgery: Present: supple, trachea midline. Absent: lymphadenopathy - Respiratory Respiratory exam: Present: CTAB. Absent: accessory muscle use, rales, rhonchi, wheezes - Cardiovascular Cardiovascular exam: Present: RRR, +S1, +S2. Absent: diastolic murmur, gallop, rubs, systolic murmur - GI/Abdominal GI/Abdominal exam: Present: normal bowel sounds, soft, no peritoneal signs. Absent: distended, tenderness - Extremities Exam Extremities exam: Present: warm, radial pulses palpable and symmetrical. Absent : calf tenderness, cyanotic, pedal edema - Neurological Exam Neurological exam: Present: CN II-XII intact, oriented X3, no focal deficits. Absent: pronater drift, facial droop, speech deficit - Skin Skin exam: Present: dry, intact
[2017-04-12 14:27] VITALS: BP 108/62
== END 2017-04-12 15:00 | disposition short-term general hospital (02) | DRG 687 ==
LOC: EMEROO 10:20 → 3BNU 10:20 → SUATTDRO 15:53
PROVIDERS: ADMIT Internal Medicine; ATTEND Internal Medicine

== ENCOUNTER 2019-02-28 06:22 | Inpatient (IN) ==
[2019-02-28] MEDS ORDERED: Ondansetron 4 MG/2 ML VIAL IVP ONE (06:41)
--- NOTE | 2019-02-28 07:21 | Emergency Department Note ---
Disposition Clinical Impression: Elevated troponin, Generalized weakness, Hyponatremia Disposition: Admitted As Inpatient Condition: Fair Referrals: Fabiola Velez CNP [Primary Care Provider] - Forms: ED Satisfaction Letter Time of Disposition: 10:12 General Adult HPI - General Chief complaint: ED Nausea/Vomiting/Diarrhea Stated complaint: vomit, diarrhea, back pain, Time Seen by Provider: 02/28/19 06:27 Source: patient, family Limitations: no limitations Nursing Notes Reviewed: Yes Vital Signs Reviewed: Yes - History of Present Illness HPI Narrative: 68 year old female presents with nausea and vomiting. Pt stated she had poor appetite and diarrhea for a month. SHe started nausea and vomiting 2 days ago. She vomited stomach content 3-5 times a day. Pt state she lost 21 lbs in several months. Pt reported generalized weakness. Pt reported history of renal cancer and thyroid issue. Pt is currently not on chemo or thyroid medication. Pt stated she had left kidney removed. The Immune therapy was completed on Sep. patient denied abdominal pain. No chills and fever. Onset (ago): day(s) (2) Location: abdomen Pain Scale: 5 - Related Data Home Medications Medication Instructions Recorded Confirmed Iron Polysaccharide Complex [Pro 180 mg PO DAILY 04/11/17 02/28/19 Fe] Rosuvastatin [Crestor] 20 mg PO HS 04/11/17 02/28/19 Allergies Allergy/AdvReac Type Severity Reaction Status Date / Time codeine Allergy Muscle Pain Verified 07/05/18 10:19 Constitutional: Denies: fever, chills Eyes: Denies: eye pain ENT ED: Denies: ear pain Cardiovascular: Denies: chest pain Respiratory: Denies: cough Gastrointestinal: Reports: nausea, vomiting, diarrhea. Denies: abdominal pain Genitourinary: Denies: urgency Musculoskeletal: Denies: back pain Integumentary: Denies: rash Neurological: Denies: headache Psychiatric: Denies: anxiety Endocrine: Denies: fatigue Hematological/Lymphatic: Denies: easy bleeding Allergic/Immunologic: Denies: facial swelling Past Medical History - Past Medical History Medical history: Reports: cancer, hyperlipidemia, thyroid disease Psychiatric history: Reports: depression [employer] history: Reports: bilateral tubal ligation - Social History Smoking Status: Former smoker Smokeless Tobacco Status: No Alcohol use: Reports: none Drug use: Reports: none Physical Exam - General Limitations: no limitations General appearance: alert, in no apparent distress - Head Head exam: atraumatic - Eye Eye exam: Present: normal appearance - ENT ENT exam: normal exam - Neck Neck exam: Present: normal inspection - Chest Chest inspection: Present: normal inspection - Respiratory Respiratory exam: Present: normal lung sounds bilaterally - Cardiovascular Cardiovascular exam: Present: tachycardia - Abdominal Exam Abdominal exam: Present: soft, Non-Tender - Extremities Exam Extremities exam: Present: normal inspection, full ROM. Absent: tenderness - Back Exam Back exam: Present: normal inspection, full ROM. Absent: tenderness - Neurological Exam Neurological exam: Present: alert, oriented X3 - Psychiatric Psychiatric exam: Present: normal affect - Skin Skin exam: Present: warm, intact Course Vital Signs Temperature 98.2 F 02/28/19 06:30 Pulse Rate 116 02/28/19 06:30 Respiratory Rate 20 02/28/19 06:30 Blood Pressure 111/76 02/28/19 06:30 O2 Sat by Pulse Oximetry 97 02/28/19 06:30 Temperature 98.2 F 02/28/19 06:30 Pulse Rate 122 02/28/19 13:05 Respiratory Rate 18 02/28/19 13:05 Blood Pressure 115/90 02/28/19 13:05 O2 Sat by Pulse Oximetry 95 02/28/19 13:05 Oxygen Delivery Oxygen Delivery Room Air Medical Decision Making - [facility] Narrative Medical decision making narrative: 68 year old female presents with generalized weakness, nausea vomiting diarrhea. No abdominal pain. No chills and a fever. History of kidney cancer and thyroid issue. Patient is not on chemotherapy all thyroid medicine currently. Physical exam: Afebrile, tachycardia, generalized weakness, bilateral lungs are clear, abdomen soft, no tender to palpation, no edema in lower extremities. Chest x-ray no pneumonia. UA normal. Abdomen CT no acute change. 7 mm nodule in right lower lobe, 3 months follow-up recommended. Discussed the result with patient and her family. Labs sodium 122. EKG ordered for tachycardia which indicated T wave inversion in V4-V6, T wave flatening in V1-2, Troponin elevated 0.16. Paged commutator presser and street sprinkler. 11:50 Dr. Combs spoke with street sprinkler Dr. Block. He considered it is not stemi. Pt will be admitted to hospital with cardiac consult. Heparin drip started in ER due to elevated troponin. 1:20 pm, spoke with hospitalist. Pt is accepted. Dr. Combs has seen the patient and agrees the above plan. - Lab Data Lab results reviewed: Yes I reviewed the patient's lab results. Result diagrams: 02/28/19 13:02 02/28/19 06:57 Lab Results 02/28/19 02/28/19 02/28/19 Range/Units 06:57 06:57 06:57 WBC 8.4 (4.3-11.1) K/mcL RBC 5.23 H (3.82-4.97) M/mcL Hgb 14.2 (11.5-15.4) g/dL Hct 41.2 (35.3-44.9) % MCV 78.8 L (83.0-100.0) fL MCH 27.2 L (28.0-33.3) pg MCHC 34.5 (31.6-35.5) g/dL RDW 12.6 (11.5-14.5) % Plt Count 348 (140-400) K/mcL MPV 11.3 (9.4-12.4) fL Immature Gran % 0.2 (0-4) % Seg Neutrophils % 52.5 % Lymphocytes % 33.0 % Monocytes % 10.7 % Eosinophils % 3.0 % Basophils % 0.6 % Neutrophils # 4.4 (1.6-8.9) K/mcL Lymphocytes # 2.8 (0.6-4.6) K/mcL Monocytes # 0.9 (0.0-1.3) K/mcL Eosinophils # 0.3 (0.0-0.6) K/mcL Basophils # 0.1 (0.0-0.2) K/mcL Sodium 122 L (136-145) mEq/L Potassium 3.3 L (3.5-5.1) mEq/L Chloride 92 L (98-107) mEq/L Carbon Dioxide 20 L (23-29) mEq/L BUN 7 L (8-23) mg/dL Creatinine 0.63 (0.60-1.20) mg/dL Est GFR ( Amer) > 60 (> 60) Est GFR (Non-Af Amer) > 60 (> 60) BUN/Creatinine Ratio 11 (6-26) Glucose 108 H (70-105) mg/dL Calculated Osmolality 253 L (280-300) Lactic Acid 0.8 (0.5-2.2) mmol/L Calcium 9.5 (8.6-10.3) mg/dL Total Bilirubin 0.7 (0.3-1.0) mg/dL AST 19 (13-39) Units/L ALT 4 L (7-52) Units/L Alkaline Phosphatase 111 H (34-104) Units/L Troponin I 0.16 H* (< 0.04) ng/mL Serum Total Protein 6.2 L (6.4-8.9) g/dL Albumin 3.6 (3.5-5.7) g/dL Globulin 2.6 (2.4-3.5) g/dL Albumin/Globulin Ratio 1.4 (1.1-2.2) Lipase 9 L (11-82) Units/L TSH 1.515 (0.340-5.600) mcIU/mL Urine Color (Yellow) Urine Clarity (Clear) Urine pH (5.0-8.0) pH Units Ur Specific Boon (1.010-1.025) Urine Protein (Neg-Trace) mg/dL Urine Glucose (UA) (Normal) mg/dL Urine Ketones (Negative) mg/dL Urine Blood (Negative) Urine Nitrite (Negative) Urine Bilirubin (Negative) Urine Urobilinogen (Normal) mg/dL Ur Leukocyte Esterase (Negative) Ur Culture Indicated? (NO) Stool Occult Bld Scrn (Negative) Stl C. diff Tox B Gene (Negative) 02/28/19 02/28/19 02/28/19 Range/Units 06:59 07:45 08:41 WBC (4.3-11.1) K/mcL RBC (3.82-4.97) M/mcL Hgb (11.5-15.4) g/dL Hct (35.3-44.9) % MCV (83.0-100.0) fL MCH (28.0-33.3) pg MCHC (31.6-35.5) g/dL RDW (11.5-14.5) % Plt Count (140-400) K/mcL MPV (9.4-12.4) fL Immature Gran % (0-4) % Seg Neutrophils % % Lymphocytes % % Monocytes % % Eosinophils % % Basophils % % Neutrophils # (1.6-8.9) K/mcL Lymphocytes # (0.6-4.6) K/mcL Monocytes # (0.0-1.3) K/mcL Eosinophils # (0.0-0.6) K/mcL Basophils # (0.0-0.2) K/mcL Sodium (136-145) mEq/L Potassium (3.5-5.1) mEq/L Chloride (98-107) mEq/L Carbon Dioxide (23-29) mEq/L BUN (8-23) mg/dL Creatinine (0.60-1.20) mg/dL Est GFR ( Amer) (> 60) Est GFR (Non-Af Amer) (> 60) BUN/Creatinine Ratio (6-26) Glucose (70-105) mg/dL Calculated Osmolality (280-300) Lactic Acid (0.5-2.2) mmol/L Calcium (8.6-10.3) mg/dL Total Bilirubin (0.3-1.0) mg/dL AST (13-39) Units/L ALT (7-52) Units/L Alkaline Phosphatase (34-104) Units/L Troponin I (< 0.04) ng/mL Serum Total Protein (6.4-8.9) g/dL Albumin (3.5-5.7) g/dL Globulin (2.4-3.5) g/dL Albumin/Globulin Ratio (1.1-2.2) Lipase (11-82) Units/L TSH (0.340-5.600) mcIU/mL Urine Color Yellow (Yellow) Urine Clarity Clear (Clear) Urine pH 5.5 (5.0-8.0) pH Units Ur Specific Boon 1.021 (1.010-1.025) Urine Protein Negative (Neg-Trace) mg/dL Urine Glucose (UA) Normal (Normal) mg/dL Urine Ketones Negative (Negative) mg/dL Urine Blood Negative (Negative) Urine Nitrite Negative (Negative) Urine Bilirubin Negative (Negative) Urine Urobilinogen Normal (Normal) mg/dL Ur Leukocyte Esterase Negative (Negative) Ur Culture Indicated? NO (NO) Stool Occult Bld Scrn Negative (Negative) Stl C. diff Tox B Gene Negative (Negative) 02/28/19 Range/Units 13:02 WBC 8.4 (4.3-11.1) K/mcL RBC 4.91 (3.82-4.97) M/mcL Hgb 13.3 (11.5-15.4) g/dL Hct 38.7 (35.3-44.9) % MCV 78.8 L (83.0-100.0) fL MCH 27.1 L (28.0-33.3) pg MCHC 34.4 (31.6-35.5) g/dL RDW 12.6 (11.5-14.5) % Plt Count 334 (140-400) K/mcL MPV 11.0 (9.4-12.4) fL Immature Gran % (0-4) % Seg Neutrophils % % Lymphocytes % % Monocytes % % Eosinophils % % Basophils % % Neutrophils # (1.6-8.9) K/mcL Lymphocytes # (0.6-4.6) K/mcL Monocytes # (0.0-1.3) K/mcL Eosinophils # (0.0-0.6) K/mcL Basophils # (0.0-0.2) K/mcL Sodium (136-145) mEq/L Potassium (3.5-5.1) mEq/L Chloride (98-107) mEq/L Carbon Dioxide (23-29) mEq/L BUN (8-23) mg/dL Creatinine (0.60-1.20) mg/dL Est GFR ( Amer) (> 60) Est GFR (Non-Af Amer) (> 60) BUN/Creatinine Ratio (6-26) Glucose (70-105) mg/dL Calculated Osmolality (280-300) Lactic Acid (0.5-2.2) mmol/L Calcium (8.6-10.3) mg/dL Total Bilirubin (0.3-1.0) mg/dL AST (13-39) Units/L ALT (7-52) Units/L Alkaline Phosphatase (34-104) Units/L Troponin I (< 0.04) ng/mL Serum Total Protein (6.4-8.9) g/dL Albumin (3.5-5.7) g/dL Globulin (2.4-3.5) g/dL Albumin/Globulin Ratio (1.1-2.2) Lipase (11-82) Units/L TSH (0.340-5.600) mcIU/mL Urine Color (Yellow) Urine Clarity (Clear) Urine pH (5.0-8.0) pH Units Ur Specific Boon (1.010-1.025) Urine Protein (Neg-Trace) mg/dL Urine Glucose (UA) (Normal) mg/dL Urine Ketones (Negative) mg/dL Urine Blood (Negative) Urine Nitrite (Negative) Urine Bilirubin (Negative) Urine Urobilinogen (Normal) mg/dL Ur Leukocyte Esterase (Negative) Ur Culture Indicated? (NO) Stool Occult Bld Scrn (Negative) Stl C. diff Tox B Gene (Negative) - Radiology Data Radiology results reviewed: Yes I reviewed the patient's radiology results. TECHNIQUE: CTA of the chest was performed after the administration of intravenous contrast. Multiplanar reformatted images are provided for review. MIP images are provided for review. Dose modulation, iterative reconstruction, and/or weight based adjustment of the mA/kV was utilized to reduce the radiation dose to as low as reasonably achievable. COMPARISON: 04/11/2017 HISTORY: ORDERING SYSTEM PROVIDED HISTORY: tachycardia 75 ml of ISO 370 FINDINGS: Pulmonary Arteries: Pulmonary arteries are adequately opacified for evaluation. No evidence of intraluminal filling defect to suggest pulmonary embolism. Main pulmonary artery is normal in caliber. Mediastinum: No evidence of mediastinal lymphadenopathy. Small, most likely reactive mediastinal and hilar lymph nodes. The heart and pericardium demonstrate no acute abnormality. There is no acute abnormality of the thoracic aorta. Lungs/pleura: The lungs are without acute process. No focal consolidation or pulmonary edema. Small bilateral pleural effusions. No pneumothorax. Upper Abdomen: Limited images of the upper abdomen are unremarkable. Soft Tissues/Bones: No acute bone or soft tissue abnormality. 2 cm partially calcified nodule in the left lobe of the thyroid. Smaller partially calcified nodules in the right lobe of the thyroid. CT/CT angio chest IMPRESSION: 1. Negative for acute pulmonary embolism 2. No acute abnormalities seen in the chest 3. Bilateral thyroid nodules with the largest measuring 2 cm in the left lobe of the thyroid. Based on bench marked recommendations below a follow-up thyroid ultrasound is suggested RECOMMENDATIONS: 2.0 cm incidental thyroid nodule. Recommend thyroid US. Reference: J Am Nelly Radiol. 2015 Sep;12(2): 143-50 D/ / Jake Serrano MD / Jake Serrano MD Interpreting Provider: Jake Serrano MD ORY: ORDERING SYSTEM PROVIDED HISTORY: vomiting, diarrhea, weight loss Initial exam FINDINGS: Lower Chest: Small effusions bilaterally with lower lobe atelectasis. Irregular appearing nodule within the right lower lobe measuring approximately 7 mm. This was not identified on prior examination. Organs: The liver and spleen are unremarkable. The gallbladder has been resected. There are subtle appearing cystic changes involving the tail the pancreas image number 54 and 55. This measures up to 7.9 mm. No surrounding inflammatory change. The right adrenal gland is normal. The right kidney is normal. The left kidney has been resected. GI/Bowel: There are no findings of bowel obstruction. No bowel wall inflammatory changes. Diverticula noted within the sigmoid colon and left colon. Pelvis: The bladder and rectum are normal. Peritoneum/Retroperitoneum: No intraperitoneal free air or free fluid. No evidence of mesenteric or retroperitoneal lymphadenopathy. Bones/Soft Tissues: No suspicious lytic or blastic osseous lesion. CT/CT abd pelvis wo no iv no oral IMPRESSION: 1. No acute intra-abdominal or pelvic abnormality. 2. Indeterminate right lower lobe nodule 7 mm. Recommend 3 month repeat imaging to assure stability. 3. Status post left nephrectomy. 4. Indeterminate cystic foci within the pancreatic tail may relate to pancreatic cyst or incidental IPMN. Attention on follow-up studies recommended. 5. Diverticulosis. 6. Small effusions with basilar atelectasis. D/ : / 02/28/2019 11:00:53 Gerson Nguyen MD / [facility] Interpreting Provider: Gerson Nguyen MD EXAMINATION: TWO XRAY VIEWS OF THE CHEST 02/28/2019 9:03 am COMPARISON: Chest radiograph 07/05/2018 HISTORY: ORDERING SYSTEM PROVIDED HISTORY: weakness Weakness, vomiting, and diarrhea for 1 week. Initial evaluation. FINDINGS: Unchanged right internal jugular central venous port catheter. Minimal new linear opacities in each lung base. Diffuse interstitial prominence with indistinct pulmonary vasculature but no definite interlobular septal thickening. No findings of pneumothorax or pleural effusion. Normal mediastinal contour. Mildly prominent hilar and cardiac contours. Atherosclerotic calcification in the aorta. No acute fracture. XR/XR chest 2V IMPRESSION: 1. Minimal bibasilar atelectasis. 2. Pulmonary vascular congestion and mild cardiomegaly. D/ / Jake Orellana MD / Jake Orellana MD Interpreting Provider: Jake Orellana MD Attestation Statement - Attestation Attestation: I, Blu Combs, examined this patient and my medical decision-making was reviewed with the CORN GRINDER/PA/Advanced Practice Nurse/Resident Physician. I agree with the documented findings, disposition and treatment plan as described except to the extent set forth below. 68-year-old female presents emergency Department with concerns of vomiting and diarrhea. Patient states she has had diarrhea over the past 2-3 weeks however she started having nonbilious and nonbloody emesis over the past 2 days. Patient denied chest pain or shortness of breath. She feels weak and fatigued over the past 2 days. She denies syncopal episode. Denies new changes in her medications. Patient reports having dark liquid stools however she denies lilly hematochezia. Laboratory evaluation revealed hyponatremia. CT of the abdomen and pelvis did not show evidence of acute surgical pathology or new mass. Patient was updated regarding her laboratory and imaging results. A EKG was obtained for evaluation of her tachycardia. Patient states that she has a history of tachycardia on multiple previous evaluations by her street sprinkler and while in the hospital. EKG showed ST depressions in the lateral leads with change in morphology of the ST segment in leads V2 and V3 with concerns for possible STEMI. Interventional cardiology was contacted after the return of EKG and elevated troponin. Patient continues to deny chest pain or palpitations or shortness of breath in the emergency department. She states she had a cardiac catheterization within the past year that did not show significant blockage and she follows Dr. Mullen for cardiology. I spoke with Dr. Amanda mast the street sprinkler, who recommended that EKG did not show STEMI. Patient will be started on heparin for elevated troponin and concern for Nstemi. She had a negative stool guaiac. Patient comfortable with plan of action.
[2019-02-28 07:31] LABS: Alanine Aminotransferase 4 Units/L (7-52); Albumin 3.6 g/dL (3.5-5.7); Albumin/Globulin Ratio 1.4 (1.1-2.2); Alkaline Phosphatase 111 Units/L (34-104); Aspartate Amino Transferase 19 Units/L (13-39); BUN/Creatinine Ratio 11 (6-26); Bilirubin,Total 0.7 mg/dL (0.3-1.0); Blood Urea Nitrogen 7 mg/dL (8-23); Calcium 9.5 mg/dL (8.6-10.3); Carbon Dioxide 20 mEq/L (23-29); Chloride 92 mEq/L (98-107); Globulin 2.6 g/dL (2.4-3.5); Glucose 108 mg/dL (70-105); Lipase 9 Units/L (11-82); Osmolality,Calculated 253 (280-300); Potassium 3.3 mEq/L (3.5-5.1); Sodium 122 mEq/L (136-145); Total Protein 6.2 g/dL (6.4-8.9); eGFR For African Americans > 60 (> 60); eGFR For Non-African Americans > 60 (> 60)
[2019-02-28 07:41] LABS: Basophils # 0.1 K/mcL (0.0-0.2); Basophils % 0.6 %; Eosinophils # 0.3 K/mcL (0.0-0.6); Hematocrit 41.2 % (35.3-44.9); Hemoglobin 14.2 g/dL (11.5-15.4); Immature Granulocytes % 0.2 % (0-4); Lymphocytes # 2.8 K/mcL (0.6-4.6); Mean Corpuscular HGB Conc 34.5 g/dL (31.6-35.5); Mean Corpuscular Hemoglobin 27.2 pg (28.0-33.3); Mean Corpuscular Volume 78.8 fL (83.0-100.0); Mean Platelet Volume 11.3 fL (9.4-12.4); Monocytes # 0.9 K/mcL (0.0-1.3); Monocytes % 10.7 %; Neutrophils # 4.4 K/mcL (1.6-8.9); Platelet Count 348 K/mcL (140-400); Red Blood Count 5.23 M/mcL (3.82-4.97); Red Cell Distribution Width 12.6 % (11.5-14.5); Segmented Neutrophils % 52.5 %; White Blood Count 8.4 K/mcL (4.3-11.1)
[2019-02-28] MEDS ORDERED: 0.9 % Sodium Chloride 1,000 ML IVC ONE (07:53)
[2019-02-28 08:01] LABS: Thyroid Stimulating Hormone 1.515 mcIU/mL (0.340-5.600)
[2019-02-28 08:19] LABS: Bilirubin,Urine Negative (Negative); Blood,Urine Negative (Negative); Clarity,Urine Clear (Clear); Color,Urine Yellow (Yellow); Glucose,Urine (UA) Normal (Normal); Ketones,Urine Negative (Negative); Leukocyte Esterase,Urine Negative (Negative); Nitrite,Urine Negative (Negative); PH,Urine 5.5 pH Units (5.0-8.0); Protein,Urine Negative (Neg-Trace); Specific Gravity,Urine 1.021 (1.010-1.025); Urobilinogen,Urine Normal (Normal)
[2019-02-28 11:13] LABS: Troponin I 0.16 ng/mL (< 0.04)
[2019-02-28] MEDS ORDERED: *HR* Heparin 5,000 UNIT/ML VIAL IVP ONE (11:57)
[2019-02-28] MEDS ORDERED: *HR* Heparin 5,000 UNIT/ML VIAL IVP PRN ×2 (11:57→12:01)
[2019-02-28] MEDS ORDERED: Aspirin 325 MG TABLET PO ONE (11:58)
[2019-02-28] MEDS ORDERED: Isovue-370 500 ML BOTTLE IVP ONE (12:04)
[2019-02-28] MEDS: Heparin 25,000 UNIT/250 ML D5W 25,000 UNIT/250 ML IV.SOLN IVC SCH (12:57)
[2019-02-28 13:18] LABS: Hematocrit 38.7 % (35.3-44.9); Hemoglobin 13.3 g/dL (11.5-15.4); Mean Corpuscular HGB Conc 34.4 g/dL (31.6-35.5); Mean Corpuscular Hemoglobin 27.1 pg (28.0-33.3); Mean Corpuscular Volume 78.8 fL (83.0-100.0); Platelet Count 334 K/mcL (140-400); Red Blood Count 4.91 M/mcL (3.82-4.97); Red Cell Distribution Width 12.6 % (11.5-14.5); White Blood Count 8.4 K/mcL (4.3-11.1)
[2019-02-28 13:26] LABS: INR 1.1
[2019-02-28] MEDS ORDERED: Aspirin 81 MG TAB.CHEW ONE (13:42)
[2019-02-28] MEDS ORDERED: Naloxone 0.4 MG/ML INJ IVP PRN (14:43)
--- NOTE | 2019-02-28 14:47 | Internal Med History&Physical ---
Date of Encounter: 02/28/19 Time of Encounter: 14:47 Internal Medicine - H&P: HPI Chief complaint: Generalized weakness, nausea and vomiting Admitted From: Emergency Dept Plans for Post Hospital Care: Home History of present illness: Ms. Pruitt is a 68 year old female patient with a history of renal cell Cancer status post-left nephrectomy who presented to the ER with complaints of intractable nausea and vomiting along with diarrhea. Symptoms have been going on for the past week. She has had poor appetite. Denies any abdominal pain or chest pain. Denies any shortness of breath. She reports that she had similar symptoms of nausea vomiting and diarrhea previously when she was diagnosed with renal cell cancer. However she is had nephrectomy and has not had any further treatment since September. She still has her port in place. She does have some palpitations. No dizziness or lightheadedness at this time. Past Med Surg Social Fam HX - Past Medical History Attestation: Yes The following information was validated with the patient. 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 Psychiatric history: depression - Social History Smoking Status: Former smoker Smokeless Tobacco Status: No Alcohol use: none Drug use: none - Family History Mother Living Status: Still Living Hx Family Cardiac Disorders: Yes Father Living Status: Hx Family Endocrine Disorder: Yes (type 2 DM) Internal Medicine - H&P: Meds Iron Polysaccharide Complex [Pro Fe] 180 mg PO DAILY 04/11/17 [History] Rosuvastatin [Crestor] 20 mg PO HS 04/11/17 [History] Allergy/AdvReac Type Severity Reaction Status Date / Time codeine Allergy Muscle Pain Verified 07/05/18 10:19 All Systems PM: A 10-system review of systems was performed and is negative for pertinent findings except as documented above in the HPI. - Constitutional Constitutional: anorexia, malaise, no chills, no fever(s), no night sweats - EENT Eyes: no change in vision, no discharge, no pain, no photophobia Ears: no ear discharge, no ear pain, no tinnitus Nose, mouth and throat: no dysphagia, no nasal discharge, no neck pain, no sore throat - Cardiovascular Cardiovascular ROS IM: no chest pain, no diaphoresis, no dyspnea, no lightheadedness, no palpitations, no syncope - Respiratory Respiratory: no cough, no dyspnea, no wheezing, no excessive phlegm production - Gastrointestinal Gastrointestinal: nausea, vomiting, no abdominal pain, no diarrhea, no hematemesis, no hematochezia, no melena - Genitourinary Genitourinary: no change in urinary stream, no dysuria, no flank pain, no hematuria - Musculoskeletal Musculoskeletal ROS IM: no numbness, no tingling - Integumentary Integumentary IM: no rash, no unusual bruising - Neurological Neurological ROS: no confusion, no convulsions, no focal weakness, no numbness, no tingling, no tremor(s) - Hematologic/Lymphatic Hematologic/Lymphatic: no easy bruising - Constitutional Vitals: Temp Pulse Resp BP Pulse Ox 98.2 F 122 18 115/90 95 02/28/19 06:30 02/28/19 13:05 02/28/19 13:05 02/28/19 13:05 02/28/19 13:05 Exam: General: Patient is alert, mild distress, oriented x 3 Head: atraumatic, normocephalic, ENT: Mucous membranes are dry Eye: normal appearance, PERRL, no scleral icterus, no conjunctival injection Neck: normal inspection, trachea midline, full ROM, no carotid bruits Chest: normal inspection, symmetric chest rise Respiratory: Good respiratory effort. Normal breath sounds. No wheezing or crackles. Cardiovascular: Regular rate and rhythm. Tachycardia, s1 and s2 normal No clicks, rubs, gallops, or murmurs. No pedal edema Abdomen: Abdomen is soft, nontender. Bowel sounds are present Musculoskeletal: Spontaneously moving all extremities Skin: warm, dry, intact. Neuro: Alert oriented x 3 normal cranial nerves, no focal deficits Psych: Patient's affect is normal Internal Med - H&P Results - Labs CBC & Chem 7: 02/28/19 13:02 02/28/19 06:57 Labs: Short CBC 02/28/19 02/28/19 Range/Units 06:57 13:02 WBC 8.4 8.4 (4.3-11.1) K/mcL Hgb 14.2 13.3 (11.5-15.4) g/dL Hct 41.2 38.7 (35.3-44.9) % Plt Count 348 334 (140-400) K/mcL Neutrophils # 4.4 (1.6-8.9) K/mcL BMP 02/28/19 06:57 Sodium 122 L Potassium 3.3 L Chloride 92 L Carbon Dioxide 20 L BUN 7 L Creatinine 0.63 Glucose 108 H Calcium 9.5 Cardiac Enzymes 02/28/19 Range/Units 06:57 Troponin I 0.16 H* (< 0.04) ng/mL Liver Function 02/28/19 Range/Units 06:57 Total Bilirubin 0.7 (0.3-1.0) mg/dL AST 19 (13-39) Units/L ALT 4 L (7-52) Units/L Alkaline Phosphatase 111 H (34-104) Units/L Albumin 3.6 (3.5-5.7) g/dL Urine 02/28/19 Range/Units 06:59 Urine Color Yellow (Yellow) Urine Clarity Clear (Clear) Urine pH 5.5 (5.0-8.0) pH Units Ur Specific [place] 1.021 (1.010-1.025) Urine Protein Negative (Neg-Trace) mg/dL Urine Glucose (UA) Normal (Normal) mg/dL - EKG Data -: EKG Interpreted by Myself EKG shows normal: sinus rhythm Rate: tachycardia - EKG Data EKG comments: 02/28/19 15:12 With PVCs and intraventricular conduction delay - Impressions ITS Impressions Abdomen/Pelvis CT 02/28/19 08:38 IMPRESSION: 1. No acute intra-abdominal or pelvic abnormality. 2. Indeterminate right lower lobe nodule 7 mm. Recommend 3 month repeat imaging to assure stability. 3. Status post left nephrectomy. 4. Indeterminate cystic foci within the pancreatic tail may relate to pancreatic cyst or incidental IPMN. Attention on follow-up studies recommended. 5. Diverticulosis. 6. Small effusions with basilar atelectasis. D/ : / 02/28/2019 11:00:53 Gerson Nguyen MD / mark Interpreting Provider: Gerson Nugyen MD Chest X-Ray 02/28/19 08:38 IMPRESSION: 1. Minimal bibasilar atelectasis. 2. Pulmonary vascular congestion and mild cardiomegaly. D/ / Jake Orellana MD / Jake Orellana MD Interpreting Provider: Jake Orellana MD Chest CTA 02/28/19 12:04 IMPRESSION: 1. Negative for acute pulmonary embolism 2. No acute abnormalities seen in the chest 3. Bilateral thyroid nodules with the largest measuring 2 cm in the left lobe of the thyroid. Based on bench marked recommendations below a follow-up thyroid ultrasound is suggested RECOMMENDATIONS: 2.0 cm incidental thyroid nodule. Recommend thyroid US. Reference: J Am Nelly Radiol. 2015 Sep;12(2): 143-50 D/ / Jake Serrano MD / Jake Serrano MD Interpreting Provider: Jake Serrano MD - Assessment and Plan (1) Acute gastroenteritis Current Visit: Yes Status: Acute (2) Elevated troponin Current Visit: Yes Status: Acute (3) Generalized weakness Current Visit: Yes Status: Acute (4) Hyponatremia Current Visit: Yes Status: Acute - Summary of Assessment and Plan Summary of Assessment and Plan: Possible gastroenteritis: Patient has symptoms of possible recent viral gastroenteritis with nausea vomiting and diarrhea. We will treat symptomatically. She does appear dry and will treat her with gentle IV hydration. Chest x-ray did show vascular congestion but patient does not appear to be volume overloaded. We will monitor input and output closely. Treat nausea symptomatically. Elevated troponin: EKG does not show any ST segment changes. Patient is tachycardic and may have underlying demand ischemia with her electrolyte abnormalities and dehydration. We will trend troponins. Cardiology has been consulted and per their recommendations, patient has been placed on IV heparin drip. Will also obtain 2-D echocardiogram once heart rate is better controlled. Sinus tachycardia: Thyroid levels are normal. Will monitor with telemetry. Cardiology consult. Restless leg syndrome: Continue Cymbalta. DVT prophylaxis: Patient is on IV heparin. High risk for complications due to elevated troponins and heparin drip. - Time Spent With Patient Total time spent is greater than 50% in coordination of care (as documented) at patient's floor/unit and/or counseling patient:
[2019-02-28] MEDS: Acetaminophen 325 MG TABLET PO PRN (16:45)
[2019-02-28] MEDS: Ringers Solution, Lactated 1,000 ML IVC SCH (16:55)
[2019-02-28] MEDS: *HR* HYDROcodone/Acet 5/325 mg TABLET PO PRN (19:16)
[2019-03-01 02:42] LABS: Basophils % 0.6 %; Eosinophils # 0.2 K/mcL (0.0-0.6); Eosinophils % 2.2 %; Hematocrit 38.6 % (35.3-44.9); Hemoglobin 13.2 g/dL (11.5-15.4); Immature Granulocytes % 0.1 % (0-4); Lymphocytes # 2.8 K/mcL (0.6-4.6); Lymphocytes % 38.2 %; Mean Corpuscular HGB Conc 34.2 g/dL (31.6-35.5); Mean Corpuscular Hemoglobin 27.3 pg (28.0-33.3); Mean Corpuscular Volume 79.9 fL (83.0-100.0); Mean Platelet Volume 10.8 fL (9.4-12.4); Monocytes % 13.4 %; Neutrophils # 3.3 K/mcL (1.6-8.9); Platelet Count 298 K/mcL (140-400); Red Blood Count 4.83 M/mcL (3.82-4.97); Red Cell Distribution Width 12.7 % (11.5-14.5); Segmented Neutrophils % 45.5 %; White Blood Count 7.2 K/mcL (4.3-11.1)
[2019-03-01 03:02] LABS: BUN/Creatinine Ratio 9 (6-26); Blood Urea Nitrogen 6 mg/dL (8-23); Calcium 8.6 mg/dL (8.6-10.3); Carbon Dioxide 19 mEq/L (23-29); Chloride 92 mEq/L (98-107); Chol/HDL Ratio 2.8 (0-4.9); Glucose 102 mg/dL (70-105); Osmolality,Calculated 250 (280-300); Potassium 3.7 mEq/L (3.5-5.1); Sodium 121 mEq/L (136-145); eGFR For African Americans > 60 (> 60); eGFR For Non-African Americans > 60 (> 60)
[2019-03-01] MEDS: Ringers Solution, Lactated 1,000 ML IVC SCH (05:08)
[2019-03-01 06:50] LABS: Estimated Average Glucose 117 mg/dl
[2019-03-01] MEDS ORDERED: 0.9 % Sodium Chloride 1,000 ML IVC SCH (08:45)
[2019-03-01] MEDS ORDERED: 0.9 % Sodium Chloride 1,000 ML ONE (08:51)
--- NOTE | 2019-03-01 10:53 | Cardiology Consult Note ---
Date of Encounter: 03/01/19 Time of Encounter: 10:50 Assessment and Plan (1) Renal cell cancer Current Visit: Yes Status: Chronic Per Cardiology: S/p left nephrectomy for renal cell carcinoma about 2 years ago at [facility]. Reportedly had "spot on her pancreas and lung and underwent immunotherapy and currently in remission". Qualifiers: Laterality: left Qualified Code(s): C64.2 - Malignant neoplasm of left kidney, except renal pelvis (2) Elevated troponin Current Visit: Yes Status: Acute Per Cardiology: Troponins noted to be 0.16, 0.21, and 0.17. CT negative for PE. Patient denied any chest pain symptoms. Do not suspect non-STEMI, suspect demand ischemia (tachycardia). No CR c/s warranted. Previous EF 60% June 2017 with no significant valvular dysfunction. EF 50% on echo September 2017. Current echo pending. We will attempt to obtain left heart catheterization from the [facility] from about 2 years ago. (3) Tachycardia Current Visit: Yes Status: Acute Per Cardiology: ECG shows sinus tachycardia 120s on arrival. Currently in the 100s. On IVF. Discussion w patient/family: The assessment and plan as outlined above was discussed with the patient and/or family members who expressed understanding and agreement. All questions were answered. Thank you for involving us in the care of your patient. Please call with any questions. History of Present Illness Consult date: 03/01/19 Consult reason: Elevated Trop Chief complaint: Weakness History of present illness: Previous medical records reviewed: "Ms. Pruitt is a 68 year old female patient with a history of renal cell Cancer status post-left nephrectomy who presented to the ER with complaints of intractable nausea and vomiting along with diarrhea. Symptoms have been going on for the past week. She has had poor appetite". Cardiology consult for elevated troponins. Seen with at bedside. They report overall decreased appetite over the past few months about 20 pound weight loss. She presented with overall weakness and nausea and vomiting. She denies experiencing any chest pain. She denies any short of breath, palpitations, dizziness, syncope, falls. Denies any active bleeding or blood loss. Reports history of left nephrectomy for renal cell carcinoma about 2 years ago at the [facility]. reports a time of surgery had mild troponin elevations and underwent left heart catheterization with "no issu es". She denies any fever, chills, cough. Denies any edema or swelling. Reports had "spot on her lung and pancreas". Underwent immunotherapy and following with [facility] on a regular basis-- last seen this past November and has been reports in remission. Past Med Surg Social Fam HX - Past Medical History Attestation: Yes The following information was validated with the patient. 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 Psychiatric history: depression - Past Surgical History Surgical History: cancer surgery, cholecystectomy Additional surgical history: left nephrectomy (2017) - Social History Smoking Status: Former smoker Smokeless Tobacco Status: No Alcohol use: none Drug use: none - Family History Mother Living Status: Still Living Hx Family Cardiac Disorders: Yes Father Living Status: Hx Family Endocrine Disorder: Yes (type 2 DM) Medications and Allergies Iron Polysaccharide Complex [Pro Fe] 180 mg PO DAILY 04/11/17 [History] Rosuvastatin [Crestor] 20 mg PO HS 04/11/17 [History] Allergy/AdvReac Type Severity Reaction Status Date / Time codeine Allergy Muscle Pain Verified 07/05/18 10:19 All Systems Review: The remainder of the systems were reviewed and are negative - Constitutional Constitutional: weakness, weight loss - Cardiovascular Cardiovascular: as per HPI - Gastrointestinal Gastrointestinal: nausea, other (Decreased appetite, vomiting) Physical Examination Vital Signs, Last 4 Hours Temp Pulse Resp BP Pulse Ox 03/01/19 06:58 98.5 F 114 16 99/67 98 General: Conversant, No Apparent Distress HEENT: Atraumatic, Normocephaly, Mucus Membranes Moist Neck: No JVD, Normal carotid pulses Cardiac: Reg Rate and Rhythm, Normal S1 and S2, No Murmur Lungs: Normal Breath Sounds, No Wheeze, Rales, Rhonchi Neuro: Alert and responsive, No focal deficits noted Abdomen: Soft, Non-Tender Skin: No rashes noted on visualized skin Musculoskeletal: No Chest Wall Tenderness Extremities: No Clubbing, No Cyanosis, No Edema, Normal Pulses Results 03/01/19 02:29 03/01/19 02:29 Lab Results Laboratory Tests 02/28/19 02/28/19 02/28/19 06:57 07:45 13:02 Hgb Hct INR 1.1 Creatinine Est GFR (Non-Af Amer) AST 19 ALT 4 L Troponin I 0.16 H* Stool Occult Bld Scrn Negative 02/28/19 02/28/19 03/01/19 15:14 21:00 02:29 Hgb 13.2 Hct 38.6 INR Creatinine Est GFR (Non-Af Amer) AST ALT Troponin I 0.21 H* 0.17 H* Stool Occult Bld Scrn 03/01/19 02:29 Hgb Hct INR Creatinine 0.64 Est GFR (Non-Af Amer) > 60 AST ALT Troponin I Stool Occult Bld Scrn ITS Impressions Abdomen/Pelvis CT 02/28/19 08:38 IMPRESSION: 1. No acute intra-abdominal or pelvic abnormality. 2. Indeterminate right lower lobe nodule 7 mm. Recommend 3 month repeat imaging to assure stability. 3. Status post left nephrectomy. 4. Indeterminate cystic foci within the pancreatic tail may relate to pancreatic cyst or incidental IPMN. Attention on follow-up studies recommended. 5. Diverticulosis. 6. Small effusions with basilar atelectasis. D/ / 02/28/2019 11:00:53 Gerson Nguyen MD / mark Interpreting Provider: Gerson Nguyen MD Chest X-Ray 02/28/19 08:38 IMPRESSION: 1. Minimal bibasilar atelectasis. 2. Pulmonary vascular congestion and mild cardiomegaly. D/ / Jake Orellana MD / Jake Orellana MD Interpreting Provider: Jake Orellana MD Chest CTA 02/28/19 12:04 IMPRESSION: 1. Negative for acute pulmonary embolism 2. No acute abnormalities seen in the chest 3. Bilateral thyroid nodules with the largest measuring 2 cm in the left lobe of the thyroid. Based on bench marked recommendations below a follow-up thyroid ultrasound is suggested RECOMMENDATIONS: 2.0 cm incidental thyroid nodule. Recommend thyroid US. Reference: J Am Nelly Radiol. 2015 Sep;12(2): 143-50 D/ / Jake Serrano MD / Jake Serrano MD Interpreting Provider: Jake Serrano MD Active Medications Acetaminophen (Tylenol) 650 mg PO Q6HR PRN PRN Reason: Fever/Mild pain Stop: 08/30/19 16:20 Last Admin: 02/28/19 16:45 Dose: 650 mg Documented by: Hydrocodone Bitart/Acetaminophen ([place] 5-325 Mg) 1 tab PO Q6HR PRN PRN Reason: Moderate Pain Stop: 08/30/19 18:49 Last Admin: 02/28/19 19:16 Dose: 1 tab Documented by: Heparin Sodium (Porcine) (Heparin) 2,000 unit IVP Q6H PRN PRN Reason: SEE COMMENTS Stop: 08/30/19 11:58 Last Admin: 03/01/19 02:58 Dose: 2,000 unit Documented by: Heparin Sodium (Porcine) (Heparin) 4,000 unit IVP Q6HR PRN PRN Reason: SEE COMMENTS Stop: 08/30/19 12:02 Last Admin: 02/28/19 20:34 Dose: 4,000 unit Documented by: Heparin Sodium/Dextrose (Heparin 25,000 Unit/250 Ml D5w) 25,000 unit in 250 mls @ 9.417 mls/hr IVC .Q24H DIAMOND; Protocol Stop: 08/30/19 12:01 Last Titration: 03/01/19 02:54 Dose: 19.08 unit/kg/hr, 15 mls/hr Documented by: Sodium Chloride (0.9 % Sodium Chloride) 1,000 mls @ 75 mls/hr IVC .[id number] DIAMOND Stop: 08/31/19 08:46 Naloxone HCl (Narcan) 0.4 mg IVP Q2MPRN PRN PRN Reason: SEE COMMENTS Stop: 08/30/19 14:44 - Imaging and Cardiology Echo: pending, report reviewed - EKG Interpretation EKG results cardiology: personally reviewed (ST with nonspecific ST changes) Consult Discharge Plan - Plan Referrals: Fabiola Velez, CAREER DEVELOPMENT [employer]OCIATE [Primary Care Provider] -
--- NOTE | 2019-03-01 12:08 | Event Note ---
Date of Encounter: 03/01/19 Time of Encounter: 12:05 - Cardiology Event Note ECHO: Impressions: LVEF 35%. Global and segmental LV systolic dysfunction. Indeterminate diastolic function. LV chamber size upper limits of normal. Normal right ventricular structure with mild reduction in systolic function. Mild mitral regurgitation. Moderate tricuspid regurgitation. Mild pulmonic regurgitation. No pulmonary hypertension. There is a small pericardial effusion present. There is no echocardiographic evidence of tamponade. No evidence of PFO with agitated saline contrast. When compared to prior echo, 09/06/2017, LV systolic function is newly reduced. Attempting to obtain echo from [facility] earlier this year and [facility] from about 2017. Continue Hep gtt for now, NPO after MN in case were to warrant further ischemic eval.
--- NOTE | 2019-03-01 13:33 | Internal Med Progress Note ---
Hospitalist Progress Note - Encounter Date of Encounter: 03/01/19 Time of Encounter: 13:33 - Subjective Interval History: Evaluated patient earlier today. She did have loose stools twice this morning. She reports that she drinks a lot of water every day especially recently. Also complains of left knee pain which is chronic for her. No fevers or chills. No new episodes of nausea or vomiting. - Exam Vitals: Temp Pulse Resp BP Pulse Ox 97.9 F 111 16 84/59 96 03/01/19 11:41 03/01/19 11:41 03/01/19 11:41 03/01/19 11:41 03/01/19 11:41 Exam: General: Patient is alert, no acute distress, oriented x 3 Respiratory: Good respiratory effort. Normal breath sounds. No wheezing or crackles. Cardiovascular: Regular rate and rhythm. s1 and s2 normal No clicks, rubs, gallops, or murmurs. No pedal edema Abdomen: Abdomen is soft, nontender. Bowel sounds are present Musculoskeletal: Spontaneously moving all extremities Skin: warm, dry, intact. Neuro: Alert oriented x 3 normal cranial nerves, no focal deficits - Assessment and Plan (1) Acute gastroenteritis Current Visit: Yes Status: Acute (2) Elevated troponin Current Visit: Yes Status: Acute (3) Generalized weakness Current Visit: Yes Status: Acute (4) Hyponatremia Current Visit: Yes Status: Acute DVT Prophylaxis: Currently on IV heparin - Summary of Assessment and Plan Summary of Assessment and Plan: Possible gastroenteritis: Nausea improved. Patient having episodes of diarrhea. We will send stool for GI panel. C. difficile toxin was negative yesterday. Hyponatremia: Concern for hypovolemic hyponatremia initially but patient's sod ium levels have remained low despite IV fluids. May have underlying SIADH or primary polydipsia related. Will place patient on fluid restriction. Check urine electrolytes. Recheck sodium levels later today. Elevated troponin: Cardiology consulted. Echocardiogram done shows EF of 35% with global and segmental LV systolic dysfunction. Awaiting records from [facility]. For now continue heparin drip. Would place patient on aspirin and continue statin. Sinus tachycardia: Etiology uncertain. we will continue to monielemetry for now Restless leg syndrome: Continue Cymbalta. DVT prophylaxis: Patient is on IV heparin. Moderate risk for complications. - Time Spent with Patient Total time spent is greater than 50% in coordination of care (as documented) at patient's floor/unit and/or counseling patient: Internal Medicine: Result - Labs CBC & Chem 7: 03/01/19 02:29 03/01/19 02:29 Labs: Short CBC 03/01/19 Range/Units 02:29 WBC 7.2 (4.3-11.1) K/mcL Hgb 13.2 (11.5-15.4) g/dL Hct 38.6 (35.3-44.9) % Plt Count 298 (140-400) K/mcL Neutrophils # 3.3 (1.6-8.9) K/mcL BMP 03/01/19 02:29 Sodium 121 L Potassium 3.7 Chloride 92 L Carbon Dioxide 19 L BUN 6 L Creatinine 0.64 Glucose 102 Calcium 8.6 Cardiac Enzymes 02/28/19 02/28/19 Range/Units 15:14 21:00 Troponin I 0.21 H* 0.17 H* (< 0.04) ng/mL - ABG Interpretation ABG results: PT/INR, D-dimer PT 12.0 Seconds (9.4-12.1) 02/28/19 13:02 - Impressions Impressions Abdomen/Pelvis CT 02/28/19 08:38 IMPRESSION: 1. No acute intra-abdominal or pelvic abnormality. 2. Indeterminate right lower lobe nodule 7 mm. Recommend 3 month repeat imaging to assure stability. 3. Status post left nephrectomy. 4. Indeterminate cystic foci within the pancreatic tail may relate to pancreatic cyst or incidental IPMN. Attention on follow-up studies recommended. 5. Diverticulosis. 6. Small effusions with basilar atelectasis. D/ / 02/28/2019 11:00:53 Gerson Nguyen MD / mark Interpreting Provider: Gerson Nguyen MD Echocardiogram 03/01/19 08:24 Impressions: LVEF 35%. Global and segmental LV systolic dysfunction. Indeterminate diastolic function. LV chamber size upper limits of normal. Normal right ventricular structure with mild reduction in systolic function. Mild mitral regurgitation. Moderate tricuspid regurgitation. Mild pulmonic regurgitation. No pulmonary hypertension. There is a small pericardial effusion present. There is no echocardiographic evidence of tamponade. No evidence of PFO with agitated saline contrast. When compared to prior echo, 09/06/2017, LV systolic function is newly reduced. Left Ventricular Wall Motion: Rest Echo Findings The apex, apical inferior, mid inferior, basal inferior, apical anterior, mid anterior, basal anterior, apical septal, mid inferior septal, basal inferior septal, apical lateral, mid anterior lateral, basal anterior lateral, mid anterior septal, mid inferior lateral, basal anterior septal and basal inferior lateral cook were hypokinetic. Findings: Study Quality * Technically adequate exam. ECG Findings * Sinus tachycardia. Left Ventricle * LVEF 35%. * Indeterminate diastolic function. * LV chamber size upper limits of normal. Right Ventricle * Normal right ventricular structure with mild reduction in systolic function. Left Atrium * Mildly dilated left atrium. Right Atrium * Mildly dilated right atrium. Aortic Valve * No aortic regurgitation. * Trileaflet aortic valve. * No aortic stenosis. Mitral Valve * Normal mitral valve structure. * No mitral stenosis. * Mild mitral regurgitation. Tricuspid Valve * Normal tricuspid valve structure. * Moderate tricuspid regurgitation. * Estimated RA pressure is 8 mmHg. * Estimated RVSP is 31 mmHg. * No pulmonary hypertension. Pulmonic Valve * Pulmonic valve is not well visualized. * No pulmonic stenosis. * Mild pulmonic regurgitation. Pulmonary Artery * Pulmonary artery not well visualized. Aorta * Normally sized aortic root. Pericardium * There is a small pericardial effusion present. * There is no echocardiographic evidence of tamponade. Interatrial Septum * No evidence of PFO by color Doppler. * No evidence of PFO with agitated saline contrast. IVC * The IVC is dilated. * < 50% respiratory change. Consult Discharge Plan - Plan Referrals: Fabiola Velez CNP [Primary Care Provider] -
[2019-03-01] MEDS: *HR* HYDROcodone/Acet 5/325 mg TABLET PO PRN (14:35)
[2019-03-02 01:41] LABS: Basophils % 0.4 %; Eosinophils # 0.2 K/mcL (0.0-0.6); Eosinophils % 4.4 %; Hematocrit 34.9 % (35.3-44.9); Immature Granulocytes % 0.4 % (0-4); Lymphocytes # 1.6 K/mcL (0.6-4.6); Lymphocytes % 33.3 %; Mean Corpuscular HGB Conc 34.4 g/dL (31.6-35.5); Mean Corpuscular Hemoglobin 26.9 pg (28.0-33.3); Mean Corpuscular Volume 78.3 fL (83.0-100.0); Monocytes # 0.7 K/mcL (0.0-1.3); Monocytes % 14.6 %; Neutrophils # 2.2 K/mcL (1.6-8.9); Platelet Count 262 K/mcL (140-400); Red Blood Count 4.46 M/mcL (3.82-4.97); Red Cell Distribution Width 12.9 % (11.5-14.5); Segmented Neutrophils % 46.9 %; White Blood Count 4.7 K/mcL (4.3-11.1)
[2019-03-02 01:59] LABS: BUN/Creatinine Ratio 11 (6-26); Blood Urea Nitrogen 6 mg/dL (8-23); Calcium 8.4 mg/dL (8.6-10.3); Carbon Dioxide 20 mEq/L (23-29); Chloride 93 mEq/L (98-107); Glucose 114 mg/dL (70-105); Osmolality,Calculated 252 (280-300); Potassium 3.4 mEq/L (3.5-5.1); Sodium 122 mEq/L (136-145); eGFR For African Americans > 60 (> 60); eGFR For Non-African Americans > 60 (> 60)
[2019-03-02] MEDS: Heparin 25,000 UNIT/250 ML D5W 25,000 UNIT/250 ML IV.SOLN IVC SCH (03:32)
[2019-03-02 04:10] LABS: Sodium, Urine 14.1 mEq/L
[2019-03-02 08:43] LABS: Adenovirus F 40/41 PCR Not detected (Not detect); C.difficile Toxin A/B Gene PCR Not detected (Not detect); Campylobacter by PCR Not detected (Not detect); Cryptosporidium by PCR Not detected (Not detect); E. coli O157 by PCR Not detected (Not detect); Entamoeba histolytica PCR Not detected (Not detect); Enteroaggregative E.coli(EAEC) Not detected (Not detect); Enteropathogenic E.coli(EPEC) Not detected (Not detect); Enterotoxigenic E.coli (ETEC) Not detected (Not detect); Giardia lamblia PCR Not detected (Not detect); Plesiomonas shigelloides PCR Not detected (Not detect); Salmonella PCR Not detected (Not detect); Shig/EnteroinvasiveE coli EIEC Not detected (Not detect); Shigalike tox-prod E coli STEC Not detected (Not detect); Vibrio PCR Not detected (Not detect); Vibrio cholerae PCR Not detected (Not detect); Yersinia enterocolitica PCR Not detected (Not detect)
[2019-03-02 08:44] LABS: Astrovirus PCR Not detected (Not detect); Cyclospora cayetanensis PCR Not detected (Not detect); Norovirus GI/GII PCR Not detected (Not detect); Rotavirus A PCR Not detected (Not detect); Sapovirus PCR Not detected (Not detect)
[2019-03-02] MEDS: Aspirin Enteric Coated 81 MG Tablet PO SCH (09:28)
--- NOTE | 2019-03-02 11:29 | Cardiology Progress Note ---
Date of Encounter: 03/02/19 Time of Encounter: 11:00 Assessment and Plan (1) Renal cell cancer Current Visit: Yes Status: Chronic Per Cardiology: S/p left nephrectomy for renal cell carcinoma 2017 at [facility]. Kidney function stable. Qualifiers: Laterality: left Qualified Code(s): C64.2 - Malignant neoplasm of left kidney, except renal pelvis (2) Elevated troponin Current Visit: Yes Status: Acute Per Cardiology: Troponins noted to be 0.16, 0.21, and 0.17. CT negative for PE. CP free. Medical records reviewed from [facility] May 2017 when patient had 7 beat run of VT, ECG changes, and mild troponin elevations with subsequent CTA showing nonobstructive CAD-- proximal LAD nonobstructive calcified plaque 25-49%, proximal RCA nonobstructive 25-49% plaque. [facility] 05/2017: Minimal luminal irregularities. On asa and statin. Will add low dose BB. Discussed and reviewed with Dr. Orta, no further cardiac recommendations, follow-up with cardiology as planned, cardiology signing off, reconsult as needed. Patient and verbalized understanding and agreed to plan. All questions answered. (3) Tachycardia Current Visit: Yes Status: Acute Per Cardiology: ECG shows sinus tachycardia 120s on arrival. Currently in the 100s. On IVF. Adding BB. (4) NICM (nonischemic cardiomyopathy) Current Visit: Yes Status: Chronic Per Cardiology: Echo showed EF 35-40% May 2017. Most recent echo September 2018 showed EF 35-40% from [facility]. Per review of records, not a new finding. Adding low-dose beta chiquis. Euvolemic on exam. Discussion w patient/family: The assessment and plan as outlined above was discussed with the patient and/or family members who expressed understanding and agreement. All questions were answered. Thank you for involving us in the care of your patient. Please call with any questions. Subjective Principal diagnosis: Weakness, CMP Interval history: Denies any new concerns over night. Reports nausea and vomiting have improved. She denies any chest pain, shortness of breath, or palpitations. Objective Vital Signs, Last 4 Hours Temp Pulse Resp BP Pulse Ox 03/02/19 10:44 98.1 F 104 16 97/64 95 03/02/19 07:27 98.1 F 108 16 106/67 95 General: Conversant, No Apparent Distress HEENT: Atraumatic, Normocephaly, Mucus Membranes Moist Neck: No JVD, Normal carotid pulses Cardiac: Reg Rate and Rhythm, Normal S1 and S2, No Murmur Lungs: Normal Breath Sounds, No Wheeze, Rales, Rhonchi Neuro: Alert and responsive, No focal deficits noted Abdomen: Soft, Non-Tender Skin: No rashes noted on visualized skin Musculoskeletal: No Chest Wall Tenderness Extremities: No Clubbing, No Cyanosis, No Edema, Normal Pulses Results 03/02/19 01:28 03/02/19 01:28 Lab Results Laboratory Tests 02/28/19 02/28/19 02/28/19 06:57 15:14 21:00 Hgb Hct Creatinine Est GFR (Non-Af Amer) Troponin I 0.16 H* 0.21 H* 0.17 H* 03/02/19 03/02/19 01:28 01:28 Hgb 12.0 Hct 34.9 L Creatinine 0.56 L Est GFR (Non-Af Amer) > 60 Troponin I Impressions Echocardiogram 03/01/19 08:24 Impressions: LVEF 35%. Global and segmental LV systolic dysfunction. Indeterminate diastolic function. LV chamber size upper limits of normal. Normal right ventricular structure with mild reduction in systolic function. Mild mitral regurgitation. Moderate tricuspid regurgitation. Mild pulmonic regurgitation. No pulmonary hypertension. There is a small pericardial effusion present. There is no echocardiographic evidence of tamponade. No evidence of PFO with agitated saline contrast. When compared to prior echo, 09/06/2017, LV systolic function is newly reduced. Left Ventricular Wall Motion: Rest Echo Findings The apex, apical inferior, mid inferior, basal inferior, apical anterior, mid anterior, basal anterior, apical septal, mid inferior septal, basal inferior septal, apical lateral, mid anterior lateral, basal anterior lateral, mid anterior septal, mid inferior lateral, basal anterior septal and basal inferior lateral cook were hypokinetic. Findings: Study Quality * Technically adequate exam. ECG Findings * Sinus tachycardia. Left Ventricle * LVEF 35%. * Indeterminate diastolic function. * LV chamber size upper limits of normal. Right Ventricle * Normal right ventricular structure with mild reduction in systolic function. Left Atrium * Mildly dilated left atrium. Right Atrium * Mildly dilated right atrium. Aortic Valve * No aortic regurgitation. * Trileaflet aortic valve. * No aortic stenosis. Mitral Valve * Normal mitral valve structure. * No mitral stenosis. * Mild mitral regurgitation. Tricuspid Valve * Normal tricuspid valve structure. * Moderate tricuspid regurgitation. * Estimated RA pressure is 8 mmHg. * Estimated RVSP is 31 mmHg. * No pulmonary hypertension. Pulmonic Valve * Pulmonic valve is not well visualized. * No pulmonic stenosis. * Mild pulmonic regurgitation. Pulmonary Artery * Pulmonary artery not well visualized. Aorta * Normally sized aortic root. Pericardium * There is a small pericardial effusion present. * There is no echocardiographic evidence of tamponade. Interatrial Septum * No evidence of PFO by color Doppler. * No evidence of PFO with agitated saline contrast. IVC * The IVC is dilated. * < 50% respiratory change. Active Medications Acetaminophen (Tylenol) 650 mg PO Q6HR PRN PRN Reason: Fever/Mild pain Stop: 08/30/19 16:20 Last Admin: 02/28/19 16:45 Dose: 650 mg Documented by: Hydrocodone Bitart/Acetaminophen ([place] 5-325 Mg) 1 tab PO Q6HR PRN PRN Reason: Moderate Pain Stop: 08/30/19 18:49 Last Admin: 03/01/19 14:35 Dose: 1 tab Documented by: Aspirin (Aspirin Ec) 81 mg PO DAILY [facility] Stop: 09/01/19 09:01 Last Admin: 03/02/19 09:28 Dose: 81 mg Documented by: Heparin Sodium (Porcine) (Heparin) 2,000 unit IVP Q6H PRN PRN Reason: SEE COMMENTS Stop: 08/30/19 11:58 Last Admin: 03/01/19 02:58 Dose: 2,000 unit Documented by: Heparin Sodium (Porcine) (Heparin) 4,000 unit IVP Q6HR PRN PRN Reason: SEE COMMENTS Stop: 08/30/19 12:02 Last Admin: 02/28/19 20:34 Dose: 4,000 unit Documented by: Heparin Sodium/Dextrose (Heparin 25,000 Unit/250 Ml D5w) 25,000 unit in 250 mls @ 9.417 mls/hr IVC .Q24H [facility]; Protocol Stop: 08/30/19 12:01 Last Titration: 03/02/19 11:07 Dose: 23.07 unit/kg/hr, 18.1 mls/hr Documented by: Naloxone HCl (Narcan) 0.4 mg IVP Q2MPRN PRN PRN Reason: SEE COMMENTS Stop: 08/30/19 14:44 Rosuvastatin Calcium (Crestor) 20 mg PO HS [facility] Stop: 08/31/19 21:01 Last Admin: 03/01/19 21:29 Dose: 20 mg Documented by: Sodium Chloride (Sodium Chloride) 1 gm PO BID [facility] Stop: 08/31/19 22:12 Last Admin: 03/02/19 09:28 Dose: 1 gm Documented by: - Imaging and Cardiology Echo: report reviewed Cardiac cath: report reviewed Consult Discharge Plan - Plan Referrals: Fabiola Velez CNP [Primary Care Provider] - 03/16/19 1:00 pm ()
[2019-03-02] MEDS: Metoprolol XL (24 HR) Succ 25 MG TAB.ER.24H PO SCH (13:10)
--- NOTE | 2019-03-02 14:19 | Internal Med Progress Note ---
Hospitalist Progress Note - Encounter Date of Encounter: 03/02/19 Time of Encounter: 11:00 - Subjective Interval History: -Seen at bedside. Denies chest pain, SOB, nausea, vomiting, mentioned improvement in the diarrhea. Feeling hungry today but was kept NPO in anticipation of the procedure. Denies fever, chills. - Exam Vitals: Temp Pulse Resp BP Pulse Ox 98.1 F 104 16 97/64 95 03/02/19 10:44 03/02/19 10:44 03/02/19 10:44 03/02/19 10:44 03/02/19 10:44 Exam: General: Patient is alert, no acute distress, oriented x 3 Respiratory: Good respiratory effort. Normal breath sounds. No wheezing or crackles. Cardiovascular: Regular rate and rhythm. s1 and s2 normal No clicks, rubs, gallops, or murmurs. No pedal edema Abdomen: Abdomen is soft, nontender. Bowel sounds are present Musculoskeletal: Spontaneously moving all extremities Skin: warm, dry, intact. Neuro: Alert oriented x 3 normal cranial nerves, no focal deficits - Assessment and Plan (1) Acute gastroenteritis Current Visit: Yes Status: Acute Assessment and Plan: -Improving -C. DIff nagtive -GI panel negative -Pt mentioned improvment in appetite today -Will continue to follow (2) Elevated troponin Current Visit: Yes Status: Acute Assessment and Plan: -Likely type II in contet of dehydration. -Echocardiogram done shows EF of 35% with global and segmental LV systolic dysfunction. -Buddy consulted who obtained records from the outside and seems like pt has these echo cahnegs previously with non ischemic cardiomyopathy, so no further intervnetions, -Hpearin drip stopped -Continue aspirin, statin and beta chiquis. (3) Generalized weakness Current Visit: Yes Status: Acute Assessment and Plan: -Likley in context of dehydration -Considering low sodium, low BP, and weakness, we will workup for adrenal insufficieny (4) Hyponatremia Current Visit: Yes Status: Acute Assessment and Plan: Sodium continues to be low at 120 -Likely seems to be hypovolemic hyponatemia -PT was given initially IV fluids --> not imporved --> fluid retriction due to concerns for the SIADH --> not improved -Urine studies showing low osmolality, with low sodium, pt looks euvolemic . -Order TSH and cortisol levels -Nephrology consulted -Appreciate recommndations (5) Restless leg syndrome Current Visit: Yes Status: Acute Assessment and Plan: -Continue ropinirole - Time Spent with Patient Total time spent is greater than 50% in coordination of care (as documented) at patient's floor/unit and/or counseling patient: Internal Medicine: Result - Labs CBC & Chem 7: 03/02/19 01:28 03/02/19 01:28 Labs: Short CBC 03/02/19 Range/Units 01:28 WBC 4.7 (4.3-11.1) K/mcL Hgb 12.0 (11.5-15.4) g/dL Hct 34.9 L (35.3-44.9) % Plt Count 262 (140-400) K/mcL Neutrophils # 2.2 (1.6-8.9) K/mcL BMP 03/01/19 03/01/19 03/02/19 17:20 21:30 01:28 Sodium 121 L 121 L 122 L Potassium 3.4 L Chloride 93 L Carbon Dioxide 20 L BUN 6 L Creatinine 0.56 L Glucose 114 H Calcium 8.4 L - ABG Interpretation ABG results: PT/INR, D-dimer PT 12.0 Seconds (9.4-12.1) 02/28/19 13:02 Consult Discharge Plan - Plan Referrals: Fabiola Velez CNP [Primary Care Provider] - 03/16/19 1:00 pm ()
[2019-03-02] MEDS ORDERED: Ondansetron 4 MG/2 ML VIAL IVP PRN (15:29)
--- NOTE | 2019-03-02 16:23 | Nephrology Consult Note ---
Date of Encounter: 03/02/19 Time of Encounter: 16:14 Assessment and Plan (1) Hyponatremia Current Visit: Yes Status: Acute This is a 68 y/o F with PMHx significant for renal cell carcinoma s/p left nephrectomy, HLD, thyroid disease who initially presented to the ED with c/o intractable nausea and vomiting with diarrhea for 1 week prior to admission. A ssociated with poor appetite, occasional palpitations, 20lb weight loss over the past few months. Cancer treatment was done at [facility] at [facility]. Nephrology consulted due to persistent hyponatremia. - Persistent Hyponatremia = 121-122 - UA: Negative - Urine Osm = 271 - Urine Cr = 73 - Urine Na = 14.1 - Serum Osm = 250 - TSH = WNL PLAN: Patient presents with persistent hyponatremia. Initially thought to be hypovolemic hyponatremia secondary to GI losses (vomiting, diarrhea). However, with IVF rehydration, no improvement in sodium. Patient was then fluid restricted, thought to have component of SIADH, but sodium remained persistently decreased. Patient appears to be euvolemic/ hypervolemic. Cardiology did evaluate patient for elevated troponins, and repeat echo did show EF = 35%, which was decreased from previous echo. With decreased urine sodium, patient may have hypervolemic hyponatremia, but may benefit for gentle rehydration with normal saline. - Will give gentle rehydration with normal saline at 50cc/hr - Recheck sodium after 2 hours. If sodium drops, stop IVF. If sodium increases, cont IVF through the evening. Monitor rate of increase so as to not increase by > 10 meq of sodium per 24 hours. - Cont salt tabs 1g BID - Follow up cortisol studies, given patient is hyponatremic with weakness, lethargy, fatigue History of Present Illness - Reason for Consult Consult date: 03/02/19 hyponatremia Requesting physician: Brittany Cai - Chief Complaint Nausea/ Vomiting/ Diarrhea + Generalized Weakness - History of Present Illness This is a 68 y/o F with PMHx significant for renal cell carcinoma s/p left nephrectomy, HLD, thyroid disease who initially presented to the ED with c/o intractable nausea and vomiting with diarrhea for 1 week prior to admission. Associated with poor appetite, occasional palpitations, 20lb weight loss over the past few months, generalized weakness. Notes 1-2 episodes of vomiting x 1 week, persistent nausea, and multiple episodes of diarrhea per day. Cancer treatment was done at [facility] at [facility]. Of note, patient states that she has been drinking 5-6 big bottles of water a day. States that her trimmer buffing wheel told her to cut out salt from her diet, and drink more water. On initial presentation to the ED, patient was hemodynamically stable. CXR was negative, UA was normal, CTA chest negative and Abdominal CT showed 7mm nodule in RLL of lung (3 month follow up recommended). Lab work did initially show hyponatremia = 122. Trop mildly elevated = 0.16, and EKG did show T wave inversions. Pt started on Heparin drip. Pt admitted to hospital floor. During hospital course, patient was persistently hyponatremic. Initial concern was for hypovolemic hyponatremia given patient's history of vomiting and diarrhea. However, with IVF hydration, there was no improvement in hyponatremia. Na has stayed consistently at 121-122. Patient was then fluid restricted evaluating for SIADH, but patient's sodium remained at similar levels. Urine studies as below: UA: Negative Urine Osm = 271 Urine Cr = 73 Urine Na = 14.1 Serum Osm = 250 On my examination, patient is resting comfortably at bedside in no acute distress. She states that she has never previously been diagnosed with hyponatremia. States that since she has been in the hospital, she has had no further episodes of vomiting or diarrhea. Notes no acute complaints at this time. Nephrology consulted due to persistent hyponatremia. Past Med Surg Social Fam HX - Past Medical History Attestation: Yes The following information was validated with the patient. 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 Psychiatric history: depression - Past Surgical History Surgical History: cancer surgery, cholecystectomy Additional surgical history: left nephrectomy (2017) - Social History Smoking Status: Former smoker Smokeless Tobacco Status: No Alcohol use: none Drug use: none - Family History Mother Living Status: Still Living Hx Family Cardiac Disorders: Yes Father Living Status: Hx Family Endocrine Disorder: Yes (type 2 DM) Medications and Allergies Rosuvastatin [Crestor] 20 mg PO HS 04/11/17 [History] DULoxetine [Cymbalta] 30 mg PO QAM 03/01/19 [History] Metoprolol Succinate [Toprol Xl] 12.5 mg PO QAM 03/01/19 [History] Ropinirole HCl 0.25 mg PO HS 03/01/19 [History] Allergy/AdvReac Type Severity Reaction Status Date / Time codeine Allergy Muscle Pain Verified 07/05/18 10:19 Review of Systems Constitutional: fatigue, lethargy, malaise, weakness, weight loss, no headache(s) Nose, mouth and throat: no disequilibrium, no dizziness, no headache(s) Cardiovascular: palpitations, no chest pain, no diaphoresis, no dyspnea, no edema, no irregular heart rhythm, no radiating jaw, neck or arm pain, no lightheadedness Respiratory: no cough, no dyspnea Gastrointestinal: diarrhea, nausea, vomiting, no abdominal pain Integumentary: no swelling Neurological: weakness, no confusion, no disequilibrium, no dizziness, no syncope Psychiatric: no confusion Endocrine: fatigue, polydipsia Exam - Vital Signs Vital signs: Initial Vital Signs Temp Pulse Resp BP Pulse Ox 98.2 F 116 20 111/76 97 02/28/19 06:30 02/28/19 06:30 02/28/19 06:30 02/28/19 06:30 02/28/19 06:30 Vital Signs - Last 8 Hours Temp Pulse Resp BP Pulse Ox 03/02/19 15:12 97.7 F 102 16 113/78 95 03/02/19 14:39 97.7 F 102 16 120/77 97 03/02/19 10:44 98.1 F 104 16 97/64 95 Intake and Output 03/02/19 03/02/19 03/02/19 07:59 15:59 23:59 Intake Total 1027.2 / 1440.2 413 / 1440.2 Output Total 300 / 300 Balance 1027.2 / 1140.2 113 / 1140.2 Intake: IV Fluids 1027.2 / 1200.2 173 / 1200.2 0.9 % Sodium Chloride 1,000 ML 1000 / 1000 @ 75 mls/hr IVC .[id number] [facility] Rx #:[id number] Heparin 25,000 UNIT/250 ML D5W 27.2 / 200.2 173 / 200.2 25,000 unit In 250 ml @ 12 UNIT /KG/HR 9.417 mls/hr IVC .Q24H [facility] Rx#:[id number] Oral 240 / 240 Output: Urine 300 / 300 Other: # Voids 1 Weight 85.1 kg Patient Weight 03/02/19 23:59 Weight 85.1 kg - General Appearance General appearance: well-developed, well-nourished, appears started age EENT: ATNC, mucous membranes moist Neck: no JVD, no thyromegaly, supple Respiratory: clear Cardiology: no murmurs, no rub, no gallops, no edema, regular rate, regular rhythm, normal S1, normal S2 Gastrointestinal: normoactive bowel sounds, no tenderness, no guarding, no organomegaly, no masses Integumentary: no rash, warm and dry Neurologic: no focal deficit, alert and oriented x3, strength 5/5, CN 3-12 intact Musculoskeletal: no deformities, no erythema Psychiatric: mood/affect appropriate Results - Lab Results 03/02/19 01:28 03/02/19 01:28 Consult Discharge Plan - Plan Referrals: Fabiola Velez CNP [Primary Care Provider] - 03/16/19 1:00 pm ()
[2019-03-02] MEDS: 0.9 % Sodium Chloride 1,000 ML IVC SCH (18:02)
[2019-03-02] MEDS: Acetaminophen 325 MG TABLET PO PRN ×2 (18:08→23:43)
[2019-03-02] MEDS ORDERED: *HR* Promethazine 25 MG/ML VIAL IVP ONE (19:44)
[2019-03-02] MEDS: rOPINIRole 0.25 MG TABLET PO SCH (21:35)
[2019-03-03 04:00] LABS: Basophils % 0.2 %; Eosinophils # 0.2 K/mcL (0.0-0.6); Eosinophils % 4.5 %; Hematocrit 33.7 % (35.3-44.9); Hemoglobin 11.4 g/dL (11.5-15.4); Immature Granulocytes % 0.2 % (0-4); Lymphocytes # 1.3 K/mcL (0.6-4.6); Lymphocytes % 30.7 %; Mean Corpuscular HGB Conc 33.8 g/dL (31.6-35.5); Mean Corpuscular Hemoglobin 27.4 pg (28.0-33.3); Monocytes # 0.7 K/mcL (0.0-1.3); Monocytes % 15.6 %; Neutrophils # 2.1 K/mcL (1.6-8.9); Platelet Count 279 K/mcL (140-400); Red Blood Count 4.16 M/mcL (3.82-4.97); Red Cell Distribution Width 12.9 % (11.5-14.5); Segmented Neutrophils % 48.8 %; White Blood Count 4.2 K/mcL (4.3-11.1)
[2019-03-03 04:15] LABS: BUN/Creatinine Ratio 9 (6-26); Blood Urea Nitrogen 5 mg/dL (8-23); Calcium 8.4 mg/dL (8.6-10.3); Carbon Dioxide 21 mEq/L (23-29); Chloride 94 mEq/L (98-107); Glucose 100 mg/dL (70-105); Osmolality,Calculated 253 (280-300); Potassium 3.5 mEq/L (3.5-5.1); Sodium 123 mEq/L (136-145); eGFR For African Americans > 60 (> 60); eGFR For Non-African Americans > 60 (> 60)
[2019-03-03 04:28] LABS: Thyroid Stimulating Hormone 1.906 mcIU/mL (0.340-5.600)
[2019-03-03] MEDS: Acetaminophen 325 MG TABLET PO PRN (06:06)
[2019-03-03] MEDS: Aspirin Enteric Coated 81 MG Tablet PO SCH (08:25)
[2019-03-03] MEDS: Metoprolol XL (24 HR) Succ 25 MG TAB.ER.24H PO SCH (08:25)
[2019-03-03] MEDS: *HR* HYDROcodone/Acet 5/325 mg TABLET PO PRN (11:37)
[2019-03-03] MEDS: Hydrocortisone Sodium Succ 100 MG/2 ML VIAL IVP SCH ×2 (11:37→22:34)
[2019-03-03] MEDS: 0.9 % Sodium Chloride 1,000 ML IVC SCH (14:41)
--- NOTE | 2019-03-03 14:42 | Internal Med Progress Note ---
Hospitalist Progress Note - Encounter Date of Encounter: 03/03/19 Time of Encounter: 09:20 - Subjective Interval History: Patient lying down in bed. Feels tired. Denies any nausea or vomiting. Complains of back pain due to lying down in bed. Denies any dizziness or lightheadedness. Diarrhea is more intermittent now. - Exam Vitals: Temp Pulse Resp BP Pulse Ox 97.5 F L 73 16 102/50 98 03/03/19 11:16 03/03/19 11:16 03/03/19 11:16 03/03/19 11:16 03/03/19 11:16 Exam: General: Patient is alert, no acute distress, oriented x 3 ENT: Mucous membranes moist Respiratory: Good respiratory effort. Normal breath sounds. No wheezing or crackles. Cardiovascular: Regular rate and rhythm. s1 and s2 normal No clicks, rubs, gallops, or murmurs. No pedal edema Abdomen: Abdomen is soft, nontender. Bowel sounds are present Musculoskeletal: Spontaneously moving all extremities Skin: warm, dry, intact. Neuro: Alert oriented x 3 normal cranial nerves, no focal deficits - Assessment and Plan (1) Elevated troponin Current Visit: Yes Status: Acute (2) Generalized weakness Current Visit: Yes Status: Acute (3) Hyponatremia Current Visit: Yes Status: Acute (4) Acute gastroenteritis Current Visit: Yes Status: Acute (5) Restless leg syndrome Current Visit: Yes Status: Acute DVT Prophylaxis: On subcutaneous heparin - Summary of Assessment and Plan Summary of Assessment and Plan: Gastroenteritis: Improving, GI panel and C. difficile toxins were negative. Adrenal insufficiency: Random cortisol level very low at 0.4. Started patient on intravenous Solu-Cortef. Hyponatremia: Continue with fluid restriction and salt tablets. Will continue to monitor sodium levels closely. Coronary artery disease: Cardiology evaluated patient and recommended no further inpatient workup at this time. Continue aspirin, statin and metoprolol. Sinus tachycardia: Resolved. Continue metoprolol Restless leg syndrome: Continue Cymbalta and reqip DVT prophylaxis: On subcutaneous heparin Moderate risk for complications. - Time Spent with Patient Total time spent is greater than 50% in coordination of care (as documented) at patient's floor/unit and/or counseling patient: Internal Medicine: Result - Labs CBC & Chem 7: 03/03/19 03:30 03/03/19 07:30 Labs: Short CBC 03/03/19 Range/Units 03:30 WBC 4.2 L (4.3-11.1) K/mcL Hgb 11.4 L (11.5-15.4) g/dL Hct 33.7 L (35.3-44.9) % Plt Count 279 (140-400) K/mcL Neutrophils # 2.1 (1.6-8.9) K/mcL BMP 03/02/19 03/02/19 03/03/19 19:40 23:40 03:30 Sodium 122 L 121 L 123 L Potassium 3.5 Chloride 94 L Carbon Dioxide 21 L BUN 5 L Creatinine 0.57 L Glucose 100 Calcium 8.4 L 03/03/19 07:30 Sodium 124 L Potassium Chloride Carbon Dioxide BUN Creatinine Glucose Calcium - ABG Interpretation ABG results: PT/INR, D-dimer PT 12.0 Seconds (9.4-12.1) 02/28/19 13:02 Consult Discharge Plan - Plan Referrals: Fabiola Velez CNP [Primary Care Provider] - 03/16/19 1:00 pm ()
[2019-03-03] MEDS: rOPINIRole 0.25 MG TABLET PO SCH (21:42)
[2019-03-04 05:00] LABS: Hemoglobin 11.6 g/dL (11.5-15.4); Immature Granulocytes % 0.3 % (0-4); Lymphocytes # 0.7 K/mcL (0.6-4.6); Lymphocytes % 21.2 %; Mean Corpuscular HGB Conc 34.1 g/dL (31.6-35.5); Mean Corpuscular Hemoglobin 27.2 pg (28.0-33.3); Mean Corpuscular Volume 79.8 fL (83.0-100.0); Mean Platelet Volume 10.7 fL (9.4-12.4); Monocytes # 0.3 K/mcL (0.0-1.3); Monocytes % 7.9 %; Neutrophils # 2.3 K/mcL (1.6-8.9); Platelet Count 342 K/mcL (140-400); Red Blood Count 4.26 M/mcL (3.82-4.97); Segmented Neutrophils % 70.6 %; White Blood Count 3.3 K/mcL (4.3-11.1)
[2019-03-04 05:20] LABS: BUN/Creatinine Ratio 11 (6-26); Blood Urea Nitrogen 6 mg/dL (8-23); Calcium 8.9 mg/dL (8.6-10.3); Carbon Dioxide 24 mEq/L (23-29); Chloride 102 mEq/L (98-107); Glucose 131 mg/dL (70-105); Osmolality,Calculated 277 (280-300); Potassium 4.2 mEq/L (3.5-5.1); Sodium 134 mEq/L (136-145); eGFR For African Americans > 60 (> 60); eGFR For Non-African Americans > 60 (> 60)
[2019-03-04] MEDS: Aspirin Enteric Coated 81 MG Tablet PO SCH (08:21)
[2019-03-04] MEDS: Metoprolol XL (24 HR) Succ 25 MG TAB.ER.24H PO SCH (08:21)
[2019-03-04 09:09] VITALS: BP 102/58
[2019-03-04] MEDS: Hydrocortisone Sodium Succ 100 MG/2 ML VIAL IVP SCH (09:12)
--- NOTE | 2019-03-04 10:11 | Nephrology Progress Note ---
Date of Encounter: 03/04/19 Time of Encounter: 10:11 Subjective Principal diagnosis: Weakness, CMP Objective - Vital Signs Vital signs: Vital Signs Temp Pulse Resp BP Pulse Ox 03/04/19 09:09 102/58 03/04/19 08:15 97.9 F 96 16 89/53 96 03/04/19 04:18 97.4 F L 99 16 111/64 95 03/03/19 23:59 97.9 F 100 16 115/65 96 03/03/19 18:42 98 F 69 16 99/65 95 03/03/19 15:16 97.5 F L 99 16 111/63 93 03/03/19 11:16 97.5 F L 73 16 102/50 98 Intake and Output 03/03/19 03/04/19 03/04/19 23:59 07:59 15:59 Intake Total 240 / 600 360 / 600 Balance 240 / 600 360 / 600 Intake: Oral 240 / 600 360 / 600 Other: Meal Breakfast Percent of Meal Consumed 100% Weight 82.8 kg Patient Weight 03/04/19 23:59 Weight 82.8 kg - Lab 03/04/19 04:45 03/04/19 04:45 Most recent lab results 03/04/19 04:45 Calcium 8.9 Consult Discharge Plan - Plan Referrals: Fabiola Velez CNP [Primary Care Provider] - 03/16/19 1:00 pm ()
--- NOTE | 2019-03-04 10:14 | Discharge Summary ---
- NOTES TO OUTPATIENT PROVIDER Notes to Outpatient Provider: Patient presented with acute gastroenteritis symptoms. 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 Nephrology started her on salt tablets. She was also found to have low cortisol level and was started on hydrocortisone. Patient would be discharged on salt tablets and hydrocortisone pills. Please refer to steward/stewardess second to confirm adrenal insufficiency. Follow-up BMP/CBC. Keep appointment with cancer center given her pulmonary nodule in her history of renal cell carcinoma. Orders not resulted at time of discharge: Pending orders 03/03/19 06:01 Cortisol,Saliva Routine Date of Encounter: 03/04/19 Time of Encounter: 09:00 - Discharge Diagnosis (1) Elevated troponin Priority: Secondary Status: Resolved (2) Generalized weakness Priority: Secondary Status: Resolved (3) Hyponatremia Priority: Primary Status: Resolved (4) Acute gastroenteritis Priority: Secondary Status: Resolved (5) Restless leg syndrome Priority: Secondary Status: Chronic Hospital course: Ms. Pruitt is a 68 year old female with history of renal cell cancer status post left nephrectomy who came into the hospital with nausea/vomiting and diarrhea. Patient was treated with IV fluids for acute gastroenteritis. Patient was also found to have hyponatremia which was treated initially with IV fluids. Nephrology service was consulted and her symptoms were related to possible SIADH. Patient was started on salt tablets with significant improvement in her sodium. She also has low random cortisol level for which she was started on hydrocortisone. Patient had mild troponin elevation. Cardiology service was consulted. CTA was negative for PE. Cardiology recommended medical management with aspirin, statins and beta blockers. Patient was found to have 7 mm pulmonary nodule with recommendation to follow-up as outpatient. Patient knows about her nodule and she is to follow with [facility]. Today, she is hemodynamically stable. She will be discharged home in stable condition. Discharge discussed with: patient - Time Spent with Patient Total time spent providing and/or coordinating discharge services: 40 minutes - Discharge Medications Prescriptions: Continued Rosuvastatin [Crestor] 20 mg PO HS Metoprolol Succinate [Toprol Xl] 12.5 mg PO QAM Ropinirole HCl 0.25 mg PO HS DULoxetine [Cymbalta] 30 mg PO QAM Home Medications: Rosuvastatin [Crestor] 20 mg PO HS 04/11/17 [History] DULoxetine [Cymbalta] 30 mg PO QAM 03/01/19 [History] Metoprolol Succinate [Toprol Xl] 12.5 mg PO QAM 03/01/19 [History] Ropinirole HCl 0.25 mg PO HS 03/01/19 [History] Allergies/Adverse Reactions: Allergy/AdvReac Type Severity Reaction Status Date / Time codeine Allergy Muscle Pain Verified 07/05/18 10:19 Date of admission: 03/01/19 17:45 Primary care physician: Fabiola Velez, Consults: 02/28/19 12:03 Consult to Cardiology [CONS] Stat Comment: Consulting Provider: Cardiology Samreen Reason for Consult: elevated troponin Call Completed: Yes 02/28/19 15:42 Consult to [facility] Counselor [CONS] Routine Reason for SW Consult: Home Health 03/02/19 07:54 Consult to Nurse Navigator [CONS] Routine Comment: CHF 03/02/19 08:13 Consult to Nephrology [CONS] Routine Consulting Provider: Kidney Samreen/EZEKIEL/TAWNYA/WENDY Reason for Consult: Hyponatremia, not improving Call Completed: Yes 03/04/19 09:06 Consult to Occupational Therapy [CONS] Routine Comment: Evaluate, develop and implement POC Reason for Consult: evaluate the need for skilled placement Does patient have active BEDREST order?: No Is patient medically & hemodynamically stable?: Yes Consult to Physical Therapy [CONS] Routine Comment: Evaluate, develop and implement POC Reason for Consult: evaluate the need for skilled placement Does patient have active BEDREST order?: No Is patient medically & hemodynamically stable?: Yes - Constitutional Vitals: Temp Pulse Resp BP Pulse Ox 97.9 F 96 16 102/58 96 03/04/19 08:15 03/04/19 08:15 03/04/19 08:15 03/04/19 09:09 03/04/19 08:15 Exam: General: Patient is alert, no acute distress, oriented x 3 ENT: Mucous membranes moist Respiratory: Good respiratory effort. Normal breath sounds. No wheezing or crackles. Cardiovascular: Regular rate and rhythm. s1 and s2 normal No clicks, rubs, gallops, or murmurs. No pedal edema Abdomen: Abdomen is soft, nontender. Bowel sounds are present Musculoskeletal: Spontaneously moving all extremities Skin: warm, dry, intact. Neuro: Alert oriented x 3 normal cranial nerves, no focal deficits - Patient Status Disposition: Home, Self-Care Condition: Good Functional capacity at discharge: independent ambulation Overall status at discharge: patient is back to baseline - Discharge Instructions Follow Up With: Fabiola Velez CNP [Primary Care Provider] - 03/16/19 1:00 pm () - Diet and Activity Activity: ambulate only with your walker, resume usual activities as tolerated
--- NOTE | 2019-03-05 12:25 | Electrocardiograph Report ---
[address] [place], [place] [address] Test Date: 2019-02-28 Pat Name: Teresa Pruitt Department: EXAM1 Room: 3B14 Gender: F Mail Carrier: : 1950 Requested By: Al Brown Order Number: [id number] Reading MD: Hair Garcia Measurements Intervals Danube Rate: 123 P: 0 NC: 56 QRS: -72 QRSD: 123 T: 163 QT: 363 QTc: 520 Interpretive Statements Sinus tachycardia Nonspecific IVCD with LAD Poor R wave progression lateral ischemia Electronically Signed On 03-05-2019 12:23:36 EDT by Hair Garcia
== END 2019-03-04 11:14 | disposition home or self-care (01) | DRG 392 ==
LOC: EMEROOARM 06:22 → 3BNU 06:22 → SUATTDRO 03-01 17:45
PROVIDERS: ADMIT Student in an Organized Health Care Education/Training Program; ATTEND Internal Medicine

== ENCOUNTER 2021-08-11 11:41 | Inpatient (IN) ==
[2021-08-11 12:40] LABS: Basophils % 0.3 %; Eosinophils # 0.2 K/mcL (0.0-0.6); Eosinophils % 2.4 %; Hematocrit 43.1 % (35.3-44.9); Hemoglobin 14.3 g/dL (11.5-15.4); Immature Granulocytes % 0.4 % (0-4); Lymphocytes % 14.2 %; Mean Corpuscular HGB Conc 33.2 g/dL (31.6-35.5); Mean Corpuscular Hemoglobin 28.3 pg (28.0-33.3); Mean Corpuscular Volume 85.3 fL (83.0-100.0); Mean Platelet Volume 11.1 fL (9.4-12.4); Monocytes # 0.4 K/mcL (0.0-1.3); Monocytes % 4.9 %; Neutrophils # 5.5 K/mcL (1.6-8.9); Platelet Count 266 K/mcL (140-400); Red Blood Count 5.05 M/mcL (3.82-4.97); Red Cell Distribution Width 12.7 % (11.5-14.5); Segmented Neutrophils % 77.8 %; White Blood Count 7.1 K/mcL (4.3-11.1)
[2021-08-11] MEDS ORDERED: Naloxone 0.4 MG/ML INJ IVP PRN (13:07)
[2021-08-11 13:22] LABS: BUN/Creatinine Ratio 12 (6-26); Blood Urea Nitrogen 11 mg/dL (8-23); Calcium 9.2 mg/dL (8.6-10.3); Carbon Dioxide 22 mEq/L (23-29); Chloride 100 mEq/L (98-107); Glucose 168 mg/dL (70-105); Osmolality,Calculated 279 (280-300); Potassium 3.6 mEq/L (3.5-5.1); Sodium 133 mEq/L (136-145); eGFR For African Americans > 60 (> 60); eGFR For Non-African Americans > 60 (> 60)
[2021-08-11] MEDS ORDERED: *HR* OxyCODONE/APAP 5/325 TABLET PO PRN (15:14)
[2021-08-11] MEDS: *HR* Heparin 5,000 UNIT/ML VIAL SQ SCH (17:01)
[2021-08-11] MEDS: Hydrocortisone 10 MG TABLET PO SCH ×2 (17:01→20:43)
[2021-08-11] MEDS: rOPINIRole 1 MG TABLET PO SCH (20:43)
[2021-08-12 05:06] LABS: Basophils % 0.3 %; Eosinophils # 0.1 K/mcL (0.0-0.6); Eosinophils % 2.6 %; Hematocrit 38.1 % (35.3-44.9); Hemoglobin 12.9 g/dL (11.5-15.4); Immature Granulocytes % 0.3 % (0-4); Lymphocytes # 1.5 K/mcL (0.6-4.6); Lymphocytes % 38.6 %; Mean Corpuscular HGB Conc 33.9 g/dL (31.6-35.5); Mean Corpuscular Hemoglobin 28.2 pg (28.0-33.3); Mean Corpuscular Volume 83.2 fL (83.0-100.0); Mean Platelet Volume 11.3 fL (9.4-12.4); Monocytes # 0.5 K/mcL (0.0-1.3); Monocytes % 11.5 %; Neutrophils # 1.8 K/mcL (1.6-8.9); Platelet Count 265 K/mcL (140-400); Red Blood Count 4.58 M/mcL (3.82-4.97); Red Cell Distribution Width 12.5 % (11.5-14.5); Segmented Neutrophils % 46.7 %; White Blood Count 3.9 K/mcL (4.3-11.1)
[2021-08-12] MEDS: *HR* Heparin 5,000 UNIT/ML VIAL SQ SCH ×2 (05:15→17:18)
[2021-08-12 05:27] LABS: BUN/Creatinine Ratio 15 (6-26); Blood Urea Nitrogen 11 mg/dL (8-23); Calcium 8.9 mg/dL (8.6-10.3); Carbon Dioxide 25 mEq/L (23-29); Chloride 103 mEq/L (98-107); Glucose 124 mg/dL (70-105); Osmolality,Calculated 281 (280-300); Sodium 135 mEq/L (136-145); eGFR For African Americans > 60 (> 60); eGFR For Non-African Americans > 60 (> 60)
[2021-08-12] MEDS: Hydrocortisone 10 MG TABLET PO SCH (08:20)
[2021-08-12] MEDS: Metoprolol XL (24 HR) Succ 25 MG TAB.ER.24H PO SCH (08:20)
[2021-08-12] MEDS: Aspirin Enteric Coated 81 MG Tablet PO SCH (08:23)
[2021-08-12] MEDS ORDERED: Fenofibrate 54 MG TABLET PO SCH (09:00)
[2021-08-12] MEDS ORDERED: Hydrocortisone Sodium Succ 100 MG/2 ML VIAL IVP ONE ×2 (11:15→11:47)
[2021-08-12] MEDS ORDERED: Famotidine 20 MG/2 ML VIAL IVP ONE (11:49)
[2021-08-12] MEDS ORDERED: Acetaminophen IV 1,000 MG/100 ML BAG IVPB ONE (11:50)
[2021-08-12] MEDS ORDERED: *HR* Propofol 200 MG/20 ML VIAL IVP ONE (11:51)
[2021-08-12] MEDS ORDERED: *HR* FentaNYL (PF) 100 MCG/2 ML VIAL ONE ×2 (11:51→13:37)
[2021-08-12] MEDS ORDERED: Lidocaine -MPF 2% 5 ML VIAL ONE (11:52)
[2021-08-12] MEDS ORDERED: Ondansetron 4 MG/2 ML VIAL ONE (11:52)
[2021-08-12] MEDS ORDERED: CeFAZolin Syr 2,000MG/20 ML 2,000 MG/20 ML SYRINGE IVPB ONE (11:54)
[2021-08-12] MEDS ORDERED: Vancomycin 1,000 MG VIAL ONE (11:56)
[2021-08-12] MEDS ORDERED: Ringers Solution, Lactated 1,000 ML IVC SCH (12:00)
[2021-08-12] MEDS ORDERED: Ondansetron 4 MG/2 ML VIAL IVP PRN (12:03)
[2021-08-12] MEDS ORDERED: *HR* HYDROmorphone PF 0.5 MG/0.5 ML SYRINGE IVP PRN (12:03)
[2021-08-12] MEDS ORDERED: EPHEDrine 50 MG/ML VIAL ONE (13:02)
[2021-08-12] MEDS ORDERED: *HR* Rocuronium Bromide 50 MG/5 ML VIAL ONE (13:37)
[2021-08-12] MEDS ORDERED: Sugammadex Sodium 200 MG/2 ML VIAL IV ONE (15:21)
[2021-08-12] MEDS: Hydrocortisone Sodium Succ 100 MG/2 ML VIAL IVP SCH ×2 (17:18→23:21)
[2021-08-12] MEDS: rOPINIRole 1 MG TABLET PO SCH (19:37)
[2021-08-12] MEDS: CeFAZolin 2 GM/120 ML BAG IVPB SCH (19:37)
[2021-08-13] MEDS: CeFAZolin 2 GM/120 ML BAG IVPB SCH (05:27)
[2021-08-13] MEDS: *HR* Heparin 5,000 UNIT/ML VIAL SQ SCH (05:27)
[2021-08-13 05:36] LABS: Hematocrit 34.9 % (35.3-44.9); Hemoglobin 11.5 g/dL (11.5-15.4); Immature Granulocytes % 0.3 % (0-4); Lymphocytes # 0.8 K/mcL (0.6-4.6); Lymphocytes % 8.7 %; Mean Corpuscular Volume 85.1 fL (83.0-100.0); Mean Platelet Volume 11.5 fL (9.4-12.4); Monocytes # 0.5 K/mcL (0.0-1.3); Monocytes % 5.3 %; Neutrophils # 8.2 K/mcL (1.6-8.9); Platelet Count 291 K/mcL (140-400); Red Cell Distribution Width 12.7 % (11.5-14.5); Segmented Neutrophils % 85.7 %
[2021-08-13 05:40] LABS: White Blood Count 9.6 K/mcL (4.3-11.1)
[2021-08-13 05:55] LABS: BUN/Creatinine Ratio 12 (6-26); Blood Urea Nitrogen 10 mg/dL (8-23); Calcium 8.6 mg/dL (8.6-10.3); Carbon Dioxide 26 mEq/L (23-29); Chloride 105 mEq/L (98-107); Glucose 166 mg/dL (70-105); Osmolality,Calculated 287 (280-300); Potassium 4.3 mEq/L (3.5-5.1); Sodium 137 mEq/L (136-145); eGFR For African Americans > 60 (> 60); eGFR For Non-African Americans > 60 (> 60)
[2021-08-13] MEDS: Hydrocortisone 10 MG TABLET PO SCH (09:49)
[2021-08-13] MEDS: Aspirin Enteric Coated 81 MG Tablet PO SCH (09:50)
[2021-08-13] MEDS: Metoprolol XL (24 HR) Succ 25 MG TAB.ER.24H PO SCH (09:50)
[2021-08-13] MEDS: Hydrocortisone Sodium Succ 100 MG/2 ML VIAL IVP SCH (10:27)
[2021-08-13 11:27] VITALS: BP 115/71; PULSE 81; TEMP 98.8; O2SAT 96
== END 2021-08-13 13:56 | disposition home health service (06) | DRG 481 ==
LOC: EMEROOARM 11:41 → 4WAOSI 14:15 → SUATTDRO 14:15 → 4WAOSI 15:25
PROVIDERS: ADMIT Internal Medicine; ATTEND Family Medicine